=== PATIENT | female | born 1965 | race Caucasian/White ===

== ENCOUNTER 2023-06-14 11:50 | Outpatient (OUT) | payer MEDICARE, MEDICAID, SELFPAY ==
[2023-06-15 07:08] LABS: Homocyst(e)ine 19.6 umol/L (0.0-14.5)
[2023-06-17 00:08] LABS: Methylmalonic Acid, Serum 195 nmol/L (0-378)
[2023-06-18 00:06] LABS: Vitamin B6, Plasma 12.1 ug/L (3.4-65.2)
== END 2023-06-14 11:51 | disposition home or self-care (01) ==
LOC: LAB 11:56
PROVIDERS: PCP Internal Medicine; Visit Provider Internal Medicine
DX: G62.9 Polyneuropathy, unspecified (principal); G60.9 Hereditary and idiopathic neuropathy, unspecified; R79.89 Other specified abnormal findings of blood chemistry; Z11.3 Encounter for screening for infections with a predominantly sexual mode of transmission; E53.1 Pyridoxine deficiency; D51.3 Other dietary vitamin B12 deficiency anemia; I70.91 Generalized atherosclerosis; M79.10 Myalgia, unspecified site; E78.5 Hyperlipidemia, unspecified; G40.909 Epilepsy, unspecified, not intractable, without status epilepticus
CPT/HCPCS: 36415; 82607; 82746; 83090; 83921; 84207

== ENCOUNTER 2023-07-26 07:27 | Outpatient (OUT) | payer MEDICARE, MEDICAID, SELFPAY ==
[2023-07-26 08:31] LABS: Estimated GFR (African America >60 (>=60); Estimated GFR (Non-African Ame >60 (>=60)
[2023-07-27 05:07] LABS: Lithium (Eskalith(R)), Serum 0.7 mmol/L (0.5-1.2)
== END 2023-07-26 07:28 | disposition home or self-care (01) ==
LOC: LAB 07:29
PROVIDERS: PCP Internal Medicine
DX: Z79.899 Other long term (current) drug therapy (principal); F43.10 Post-traumatic stress disorder, unspecified; F31.32 Bipolar disorder, current episode depressed, moderate
CPT/HCPCS: 36415; 80178; 82565; 84520

== ENCOUNTER 2023-10-12 13:40 | Outpatient (OUT) | payer MEDICARE, MEDICAID, SELFPAY ==
--- NOTE | 2023-10-12 13:45 | MM_ITS ---
Patient Name: ALEXSANDER GUTIERREZ MR#: [id number] : 1965 Exam Date: 10/12/2023 Ordering Doctor: DR HUMBERTO ROBBINS M.D. RADIOLOGY REPORT PROCEDURE: MM TOMOSYNTHESIS SCREENING BI COMPARISON: MG MAMM SCREEN MARY W CAD, 06/13/2020. MG MAMM SCREEN 3D MARY CAD, 06/04/2022. INDICATIONS: Screening Calculator Name NCI Breast Cancer Risk Assessment Tool 5 Year Breast Cancer Risk 2.70% Lifetime Breast Cancer Risk 15.10% Personal Breast Cancer No Personal Ovarian Cancer No Treatments None Family Cancers Mother with breast cancer at age 71; Aunt-maternal with breast cancer at age ~60; Father with lung cancer at age 49. LOCATION: [facility] BREAST COMPOSITION: Scattered areas fibroglandular density. FINDINGS: DIAGNOSTIC CATEGORY 1--NEGATIVE. NO CHANGE FROM COMPARISON ASSESSMENT. Scattered benign-appearing calcifications are present. RIGHT BREAST: No significant suspicious finding. LEFT BREAST: No significant suspicious finding. RECOMMENDATIONS: ROUTINE MAMMOGRAM AND CLINICAL EVALUATION IN 12 MONTHS. PLEASE NOTE: A NORMAL MAMMOGRAM DOES NOT EXCLUDE THE POSSIBILITY OF BREAST CANCER. A CLINICALLY SUSPICIOUS PALPABLE LUMP SHOULD BE BIOPSIED. Dictated by: Adan Hopper MD on 10/13/2023 at 07:56 Approved by: Adan Hopper MD on 10/13/2023 at 07:57
== END 2023-10-12 13:41 | disposition home or self-care (01) ==
LOC: MAMMO 13:40
PROVIDERS: PCP Internal Medicine; Visit Provider Internal Medicine
DX: Z12.31 Encounter for screening mammogram for malignant neoplasm of breast (principal); Z80.3 Family history of malignant neoplasm of breast; Z80.1 Family history of malignant neoplasm of trachea, bronchus and lung
CPT/HCPCS: 77063; 77067

== ENCOUNTER 2024-12-29 13:18 | Outpatient (OUT) | payer MEDICARE, MEDICAID, SELFPAY ==
--- NOTE | 2024-12-29 13:22 | MM_ITS ---
Patient Name: ALEXSANDER GUTIERREZ MR#: [id number] : 1965 Exam Date: 12/29/2024 Ordering Doctor: DR HUMBERTO ROBBINS M.D. RADIOLOGY REPORT PROCEDURE: MM TOMOSYNTHESIS SCREENING BI COMPARISON: MG MAMM SCREEN 3D MARY CAD, 06/04/2022. MM TOMOSYNTHESIS SCREENING BI, 10/12/2023. INDICATIONS: Screening Calculator Name NCI Breast Cancer Risk Assessment Tool 5 Year Breast Cancer Risk 2.90% Lifetime Breast Cancer Risk 14.40% Personal Breast Cancer No Personal Ovarian Cancer No Treatments None Family Cancers Mother with breast cancer at age 71; Aunt-maternal with breast cancer at age ~60; Father with lung cancer at age 49. LOCATION: [facility] BREAST COMPOSITION: There are scattered areas of fibroglandular density. FINDINGS: DIAGNOSTIC CATEGORY 1--NEGATIVE. NO CHANGE FROM COMPARISON ASSESSMENT. RIGHT BREAST: No significant suspicious finding. LEFT BREAST: No significant suspicious finding. RECOMMENDATIONS: ROUTINE MAMMOGRAM AND CLINICAL EVALUATION IN 12 MONTHS. PLEASE NOTE: A NORMAL MAMMOGRAM DOES NOT EXCLUDE THE POSSIBILITY OF BREAST CANCER. A CLINICALLY SUSPICIOUS PALPABLE LUMP SHOULD BE BIOPSIED. Dictated by: Adan Hopper MD on 12/29/2024 at 15:06 Approved by: Adan Hopper MD on 12/29/2024 at 15:07
== END 2024-12-29 13:19 | disposition home or self-care (01) ==
LOC: MAMMO 13:18
PROVIDERS: PCP Internal Medicine; Visit Provider Internal Medicine
DX: Z12.31 Encounter for screening mammogram for malignant neoplasm of breast (principal); Z80.3 Family history of malignant neoplasm of breast; Z80.1 Family history of malignant neoplasm of trachea, bronchus and lung
CPT/HCPCS: 77063; 77067

== ENCOUNTER 2025-05-25 13:49 | Outpatient (OUT) | payer MEDICARE, MEDICAID, SELFPAY ==
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
--- OUTSIDE RECORDS SUMMARY | 2025-05-25 13:55 | XMS_ITS | Encounter Summary ---
Author Organization [facility] Address [address] [place] [address] Care Team Providers Care Loan Officer Name Role Phone Nj MURPHY MD, Jorge Soto Primary Care Provider [phone] Source Comments In the event this information is protected by the Federal Confidentiality of Alcohol and Drug AbusePatient Records regulations: The Federal rules restrict any use of the information to criminally investigate or prosecute any alcohol or drug abuse patient.[facility] Encounter Details Date Type Department Care Team (Late st Contact Info) Description 08/12/2024 [place] [address] Provider, [facility] Questionnaire Submission Social History Tobacco Use Types Packs/Day Years Used Date Smoking Tobacco: Never Smokeless Tobacco: Never Alcohol Use Standard Drinks/Week Comments Yes 0 (1 standard drink = 0.6 oz pure alcohol) occasioanlly, stopped drinking early PHQ-2 Answer Date Recorded PHQ-2 score 5 03/26/2024 Area Deprivation Index Answer Date Mario rded National Score (1-100), lower number is lower ri sk 73 08/14/2024 State Score (1-10), lower number is lower risk 6 08/14/2024 Data from: https://www.neighborhoodatlas.[facility]/. Last address used for calculation [address] [address] 08/14/2024 Comments No Sex and Gender Information Value Date Recorded Sex Assigned at Not on file Legal Sex Female 8:10 AM EST Gender Identity Not on file Sexual Orientation Not on file documented as of this encounter Plan of Treatment Not on file documented as of this encounter Visit Diagnoses Not on filedocumented in this encounter Care Teams Loan Officer Relationship Specialty Start Date End Date Jorge Mauro II, MD PCP - General 08/25/07 documented as of this encounter
--- OUTSIDE RECORDS SUMMARY | 2025-05-25 13:55 | XMS_ITS | Clinical Summary ---
Author Organization [facility] Address [address] [place] [address] Care Team Providers Care Natural Sciences Manager Name Role Phone Jorge Mauro MD Primary Care Provider Allergies Active Allergy Reactions Criticality Noted Date Comments Other 06/24/2013 Cough medicine Medications citalopram (CELEXA) 20 MG tablet Take 20 mg by mouth daily. Active montelukast (SINGULAIR) 10 MG tablet Take 10 mg by mouth daily. Active levothyroxine (SYNTHROID) 50 MCG tablet Take 50 mcg by mouth Daily. Active albuterol (PROVENTIL HFA) 108 (90 BASE) MCG/ACT inhaler Inhale 2 puffs into the lungs every 4 hours as needed. Active albuterol (PROVENTIL) (2.5 MG/3ML) 0.083% nebulizer solution Take 2.5 mg by nebulization every 6 hours as needed. Active enalapril (VASOTEC) 5 MG tablet Take 5 mg by mouth daily. Active fluticasone (FLONASE) 50 MCG/ACT nasal spray 2 sprays by Nasal route daily. Active fluticasone-aurora meterol (ADVAIR) 250-50 MCG/DOSE AEPB Inhale 1 puff into the lungs every 12 hours. Active vitamin (-S) 27-0.8 MG TABS Take 1 tablet by mouth daily. Active buPROPion (WELLBUTRIN SR) 150 MG SR tablet Take 150 mg by mouth 2 times daily. Active zolpidem (AMBIEN) 10 MG tablet Take 10 mg by mouth nightly as needed. Active HYDROcodone-fabiana taminophen (VICODIN) 5-500 MG per tablet Take 1 tablet by mouth every 6 hours as needed. Active acetaminophen (TYLENOL) 500 MG tablet Take 1,000 mg by mouth every 6 hours as needed. Active vitamin D (ERGOCALCIFEROL ) 400 UNITS CAPS Take 400 Units by mouth daily. Active tiZANidine (ZANAFLEX) 4 MG tablet Take 4 mg by mouth every 6 hours as needed. Active Biotin 1000 MCG TABS Take 1,000 mcg by mouth daily. Active guaiFENesin (MUCINEX) 600 MG SR tablet Take 600 mg by mouth daily. Active Social History Tobacco Use Types Packs/Day Years Used Date Smoking Tobacco: Former Comments No Sex and Gender Information Value Date Recorded Sex Assigned at Not on file Legal Sex Female 9:41 AM EST Gender Identity Not on file Sexual Orientation Not on file Last Filed Vital Signs Vital Sign Reading Time Taken Comments Blood Pressure 142/81 06/24/2013 5:52 PM EDT Pulse 65 06/24/2013 5:52 PM EDT Temperature 36.9 C (98.5 F) 06/24/2013 5:52 PM EDT Respiratory Rate 20 06/24/2013 5:52 PM EDT Oxygen Saturation 98% 06/24/2013 5:52 PM EDT Inhaled Oxygen Concentration - - Weight 84.4 kg (186 lb) 06/24/2013 5:52 PM EDT Height 165.1 cm (5' 5 ) 06/24/2013 5:52 PM EDT Body Mass Index 30.95 06/24/2013 5:52 PM EDT Plan of Treatment Not on file Care Teams Natural Sciences Manager Relationship Specialty Start Date End Date Jorge Mauro MD [address] [address] PCP - General 06/24/13
--- OUTSIDE RECORDS SUMMARY | 2025-05-25 13:55 | XMS_ITS | Clinical Summary ---
Author Organization [facility] Address [address] [place] [address] Care Team Providers Care Hunter Trapper Name Role Phone Nj MURPHY MD, Jorge Soto Primary Care Provider +1- [phone] Allergies Active Allergy Reactions Criticality Noted Date Comments Ikc-Muxdqptngwy-Uhidvzfpnhqtz Itching 2022 dextromethoraphan Dextromethorphan Rash Low 05/02/2013 Medications * This document contains information received from the source organization and may not represent a complete record from that organization. montelukast (SINGULAIR) 10 mg ORAL Tab Take by mouth. 0 7 Active fluticasone (FLONASE) 50 mcg/Actuation NASAL SprA Use in the nose. 0 7 Active enalapril maleate(VASOTEC 5 MG TAB) Take 5 mg by mouth once daily. 0 8 Active fluticasone/salm eterol(ADVAIR DISKUS 250 MCG-50 MCG/DOSE FOR INHALATION) Inhale as instructed. 0 8 Active Additional Information Patient not taking.Reason: Discontinued by Patient, Reported on 10/13/2024 ALBUTEROL 90 MCG/ACTUATION AEROSOL INHALER Inhale one(1) - two(2) puffs four(4) times a day as needed for wheezing and shortness of breath. 0 9 Active COMPOUNDED PRESCRIPTION 0 0 9 Active frovatriptan (FROVA) 2.5 mg ORAL tablet Take by mouth. Act surendra Additional Information Patient not taking.Reason: Discontinued by Patient, Reported on 05/01/2025 CYCLOSPORINE (RESTASIS OPHTHALMIC) Use in eyes. Activ e Omeprazole 20 mg TbEC Take by mouth. Activ e acetaminophen (TYLENOL EXTRA STRENGTH) 500 mg tablet Take 500 mg by mouth every 8 hours as needed. Active tiZANidine HCl 4 mg capsule Take 4 mg by mouth twice daily. Active alendronate (FOSAMAX) 70 mg tablet Take 70 mg by mouth once each week. Active docusate sodium (STOOL SOFTENER ORAL) Take by mouth. Activ e prazosin (MINIPRESS) 2 mg cap Take 2 mg by mouth once daily. Active lithium carbonate ER 300 mg CR tablet Take 300 mg by mouth two times a day. Active venlafaxine ER (EFFEXOR XR) 150 mg 24 hr capsule Take 150 mg by mouth once daily. 4 Active sertraline (ZOLOFT) 100 mg tablet Take 100 mg by mouth once daily. 4 Active senna-docusate (SENNA-S) 8.6-50 mg per tablet Take 1 tablet by mouth two times a day as needed for constipation. 20 tablet 08/25/2024 11:19 AM EDT 4 Active naloxone 4 mg/actuation nasal spray (NARCAN) Use 1 spray in one nostril as needed for overdose. May repeat every 2 to 3 min in alternating nostrils until medical assistance is available 1 Each 4 Active primidone (MYSOLINE) 50 mg tabletIndication s:Essential tremor Take 2 tablets twice daily (AM and PM) 120 tablet 3 5 Active Active Problems Problem Noted Date Diagnosed Date S/P deep brain stimulator placement 09/08/2024 Mild intermittent asthma without complication Assessment & Plan (08/21/2024 2:20 PM EDT): Stable on Breo daily and albuterol PRN Denies any recent SOB or wheezing ALYSIA (obstructive sleep apnea) 08/21/2024 Assessment & Plan (08/21/2024 11:42 PM EDT): Compliant with CPAP Type 2 diabetes mellitus, wi thout long-term current use of insulin 08/21/2024 Assessment & Plan (08/21/2024 11:43 PM EDT): Diet controlled No recent A1C Class 2 obesity with body ma ss index (BMI) of 35.0 to 35.9 in adult 08/21/2024 Assessment & Plan (08/21/2024 11:44 PM EDT): Body mass index is 35.11 kg/m . Acquired hypothyroidism 08/21/2024 Assessment & Plan (08/21/2024 11:44 PM EDT): Stable on Synthroid Gastroesophageal reflux disease without esophagi tis 08/21/2024 Assessment & Plan (08/21/2024 11:45 PM EDT): Symptoms controlled with PPI Essential tremor 08/14/2024 Other and unspecified hyperlipidemia 10/18/2007 Headache(784.0) 10/18/2007 Posttraumatic stress disorder 10/18/2007 Assessment & Plan (08/21/2024 11:41 PM EDT): Managed with medications Triggered by noises Unspecified essential hypertension Assessment & Plan (08/21/2024 2:12 PM EDT): Stable, complaint on ENALAPRIL MALEATE 5 MG TABLET Take by mouth. PRAZOSIN 2 MG CAPSULE Take 2 mg by mouth once daily. Follows with PCP. Last 3 Encounter BP Readings: Date: BP: 08/21/2024 113/98 08/21/2024 113/75 03/28/2024 126/87 Resolved Problems Problem Noted Date Diagnosed Date Resolved Date Morbid obesity 04/26/2008 08/21/2024 Unspecified asthma(493.90) 0 08/21/2024 Encounters Date Type Department Care Team Description 05/01/2025 12:00 PM EDT Office Visit [facility] [address] [place] [address] Delfino Reynaga, PAWendyC Essential tremor (Primary Dx); Abnormality of gait; Insomnia due to medical condition 05/01/2025 10:00 AM EDT - 05/01/2025 11:59 PM EDT Hospital Encounter Radiology [id number] [place] [id number] Discharge Disposition: Home 04/24/2025 Travel 03/19/2025 Travel from Last 3 Months Family History Medical History Relation Comments Hypertension Brother 2 Hypertension Mother Hypertension Sister 5 Anesthesia Problems No Family History Relation Status Comments Brother 1 Alive 47; 250# Brother 2 Father (Age 50) cancer Mother Alive 73; 180# Sister 1 Alive 52; 240# Sister 2 Alive 47; 250# Sister 3 Alive 44; 250# Sister 4 Alive 41; 190# Sister 5 Social History Tobacco Use Types Packs/Day Years Used Date Smoking Tobacco: Former Cigarettes 0.1 13 1 981 - 1993 Smokeless Tobacco: Never Tobacco Cessation:Counseling Given: Not Answered Alcohol Use Standard Drinks/Week Comments Yes 0 (1 standard drink = 0.6 oz pure alcohol) occasioanlly, stopped drinking early [facility] Utilities Answer Date Recorded In the past 12 months has th e [employer] gas, oil, or water [email or web address] threatened to shut off services in your home? No 08/25/2024 PHQ-2 Answer Date Recorded PHQ-2 score 2 04/24/2025 Hunger Vital Sign Answer Date Recorded Within the past 12 months, y ou worried that your food would run out before you got the money to buy more. Never true 08/25/20 24 Within the past 12 months, t he food you bought just didn't last and you didn't have money to get more. Never true 08/25/2024 PRAPARE - Transportation Answer Date Re corded In the past 12 months, has l ack of transportation kept you from medical appointments or from getting medications? No 07/31 In the past 12 months, has l ack of transportation kept you from meetings, work, or from getting things needed for daily living? No 08/25/2024 Housing Stability Vital Sign Answer Phillip e Recorded In the last 12 months, was t here a time when you were not able to pay the mortgage or rent on time? No 08/25/2024 Number of Times Moved in the Last Year Not on fi le 08/25/2024 At any time in the past 12 m [facility], were you homeless or living in a long term (including now)? No 08/25/2024 Area Deprivation Index Answer Date Mario rded National Score (1-100), lower number is lower ri sk 73 08/14/2024 State Score (1-10), lower number is lower risk 6 08/14/2024 Data from: https://www.neighborhoodatlas.medicine.[facility]/. Last address used for calculation [address] [address] 08/14/2024 Comments No Sex and Gender Information Value Date Recorded Sex Assigned at Not on file Legal Sex Female 8:10 AM EST Gender Identity Not on file Sexual Orientation Not on file Last Filed Vital Signs Vital Sign Reading Time Taken Comments Blood Pressure 113/67 05/01/2025 12:00 PM EDT Pulse 56 05/01/2025 12:00 PM EDT Temperature 36 C (96.8 F) 09/21/2024 4:10 PM EDT Respiratory Rate 16 09/21/2024 4:10 PM EDT Oxygen Saturation 97% 05/01/2025 12: 00 PM EDT Inhaled Oxygen Concentration - - Weight 89.8 kg (197 lb 15.6 oz) 025 12:00 PM EDT Height 165.1 cm (5' 5 ) 12/26/2024 1:51 PM EST Body Mass Index 32.94 12/26/2024 1:51 PM EST Plan of Treatment Health Maintenance Due Date Last Done Comments HbA1C 1969 Diabetic Foot Exam 1974 Dilated Retinal Exam 1974 Urine Albumin:Creatinine Ratio 1974 Annual PCP Team Chronic Dise ase Visit 1982 Depression Screening 1982 Cervical Cancer Screening 1985 CT Colonography 2009 Colonoscopy 2009 Fecal Occult Blood 2009 Sigmoidoscopy 2009 Shingrix Vaccine (1 of 2) 2014 Pneumococcal Vaccine: 50+ (3 of 3 - PCV20 or PCV21) 07/26/2020 07/26/2015, 06/03/2015, 01/28/2012 Mammogram Screening 06/04/2023 06/04/2022, 06/13/2020, 08/03/2018, Additional history exists Cologuard (FIT-DNA) 07/04/2023 07/04/2020 Colorectal Cancer Screening 07/04/2023 LDL Cholesterol 07/08/2024 07/08/2023, 09/0 02/2012, 10/18/2007 Covid-19 Vaccine (1 - 2023-2 5 season) 2024 Medicare Advantage Annual We llness Visit 11/29/2024 RSV Vaccine (1 - Risk 60-74 years 1-dose series) 2024 DTaP,Tdap,Td Vaccine (2 - Tdap) 10/14/2030 Hepatitis C Screening Completed 12/02/2007 HIV Screening Completed 12/03/2007 Influenza Vaccine Completed 10/02/2024, , 09/16/2021, Additional history exists Medical Devices Implanted Type Area Motocross Racer Device Identifier Shelf Expiration Date Model / Serial / Lot Filter- 4 Implanted:11/1993 (Quantity not on file) Filter Abdomen Description:Pt sts greenfiel d Kit Ld Dbs Infty 40cm Blk 1.5 - [id number] Implanted:Qty: 1 on 08/24/2024 at [facility] Implant Left: Head - Cranial [employer] 05/16/2026 [id number] / [id number] / Kit Ld Dbs Infty 40cm Blk 1.5 - [id number] Implanted:Qty: 1 on 09/08/2024 at [facility] Implant Right: Head - Cranial [employer] 05/16/2026 [id number] / [id number] / Accy Cvr Anh Hl - [id number] Implanted:Qty: 1 on 09/08/2024 at [facility] Implant Right: Head - Cranial [employer] 05/23/2026 [id number] / / [id number] [employer] Implantable Pulse Generator [id number] Implanted:Qty: 1 on 09/21/2024 at [facility] Implant [employer] 08/24/2026 [id number] / [id number] / Procedures Procedure Name Priority Date/Time Associated Diagnosis Comments CT BRAIN WO IVCON Routine 05/01/2025 11: 26 AM EDT LIPID PANEL, FASTING Routine 08/02/2012 12:53 PM EDT Morbid obesity Status post bariatric surgery HIV RAPID FOR [facility] 12/03/2007 8:30 AM EST OCCUPATIONAL HEALTH EXPOSURE PROFILE/PATIENT STAT 12/02/2007 5:00 PM EST from Last 3 Months or Most Recently Relevant to Health Maintenance Results * CT BRAIN WO IVCON (05/01/2025 11:26 AM EDT) Anatomical Region Laterality Modality Head Computed Tomogra phy 05/01/2025 11:2 6 AM EDT Impressions 05/01/2025 11:46 AM EDT IMPRESSION: Stable head CT with bilateral uncomplicated DBS placement. Bulk Fluids Handler: PSCB Transcribe Date/Time: May 01 2025 11:42A Dictated by : SHEREEN COURTNEY MD This examination was interpreted and the report reviewed and electronically signed by: SHEREEN COURTNEY MD on May 01 2025 11:43AM EST Narrative 05/01/2025 11:46 AM EDT * * *Final Report* * * DATE OF EXAM: May 01 2025 11:26AM [facility] 0504 - CT BRAIN WO IVCON / PROCEDURE REASON: Essential tremor * * * * Physician Interpretation * * * * COMPARISONS: 09/08/2024. HISTORY: Essential tremors. TECHNIQUE: Head CT without contrast. MQ: CTBWO_3 CT Dose-Length Product (DLP): 875 mGy*cm CT Dose Reduction Employed: No dose reduction techniques were required RESULT: HEAD CT: Acute abnormality: None. Again identified are bifrontal DBS placement with the tip in the subthalamic nuclei without any complication related to the lead placement with intact leads within the intracranial portion. Stable sulci, gyri, ventricles, CSF spaces, brain, bones & skull base with senescent volume loss, microvascular ischemia, accentuation of CSF spaces, ventricular dilation and atherosclerotic vascular calcification. No acute infarct/hemorrhage, mass, mass effect or collections. Procedure Note Provider, [facility] - 05/01/2025 * * *Final Report* * * DATE OF EXAM: May 01 2025 11:26AM [facility] 0504 - CT BRAIN WO IVCON / PROCEDURE REASON: Essential tremor * * * * Physician Interpretation * * * * COMPARISONS: 09/08/2024. HISTORY: Essential tremors. TECHNIQUE: Head CT without contrast. MQ: CTBWO_3 CT Dose-Length Product (DLP): 875 mGy*cm CT Dose Reduction Employed: No dose reduction techniques were required RESULT: HEAD CT: Acute abnormality: None. Again identified are bifrontal DBS placement with the tip in the subthalamic nuclei without any complication related to the lead placement with intact leads within the intracranial portion. Stable sulci, gyri, ventricles, CSF spaces, brain, bones & skull base with senescent volume loss, microvascular ischemia, accentuation of CSF spaces, ventricular dilation and atherosclerotic vascular calcification. No acute infarct/hemorrhage, mass, mass effect or collections. IMPRESSION IMPRESSION: Stable head CT with bilateral uncomplicated DBS placement. Bulk Fluids Handler: LAST Transcribe Date/Time: May 01 2025 11:42A Dictated by : SHEREEN COURTNEY MD This examination was interpreted and the report reviewed and electronically signed by: SHEREEN COURTNEY MD on May 01 2025 11:43AM EST Adebayo Smith PA-C CT-PAMA Final Re sult * LIPID PANEL BASIC (08/02/2012 12:53 PM EDT) Triglyceride 106 30 - 149 mg/dL [facility] Cholesterol, Total 162 100 - 199 mg/dL [facility] HDL Cholesterol 70 >55 mg/dL [facility] VLDL Cholesterol 21 6 - 40 mg/dL [facility] LDL Cholesterol, Calculated 71 60 - 129 mg/dL [facility] Fasting Time 12 hrs [facility] TC:HDL Ratio 2.31 1.00 - 5.00 [facility] LDL:HDL Ratio 1.01 0.50 - 3.55 [facility] Non HDL Cholesterol 92 90 - 159 mg/dL [facility] Blood specimen (specimen) BLOOD SPECIMEN / Unknown 08/02/2012 12:53 PM EDT 08/02/2012 12:58 PM EDT Raji Luna LABORATORY Final Result [facility] [address] [place] [address] * POST X SCREEN (12/03/2007 8:30 AM EST) HIV, Rapid ([facility]) NegativeNOTIFIED PIETRO 1124 12/03/07 LMO NEGAT [facility] 12/03/2007 8:30 AM EST Darshana Guan OPERATIONS GENERAL AGENT.MANAGEMENT ASSISTANT LABORATORY Final Result Performing Organization Address City/[facility]/ZIP Co de Phone Number [facility] [address] [place] [address] * HEP EXPOSURE/SOURCE (12/02/2007 5:00 PM EST) HBsAg Negative NEGAT [facility] HIV 1 & 2 Ab (EIA) Non Reactive NR [facility] Comment: If results are indeterminate or otherwise inconsistent with an individual's clinical presentation or risk profile for HIV infection a repeat specimen is requested. A repeat specimen is also recommended for any individual identified positive for the first time. Hep C Antibody IA Negative NEGAT [facility] Blood specimen (specimen) BLOOD SPECIMEN / Unknown 12/02/2007 5:00 PM EST Darshana Guan OPERATIONS GENERAL AGENT.MANAGEMENT ASSISTANT LABORATORY Final Result Performing Organization Address City/[facility] Co de Phone Number [facility] [address] [place] [address] from Last 3 Months or Most Recently Relevant to Health Maintenance Insurance [employer] [place] Advance Directives Documents on File Type Date Recorded Patient Hole Digger Operator Expl anation Advance Directive(s) 08/25/2024 12:17 PM Care Teams Hunter Trapper Relationship Specialty Start Date End Date Jorge Mauro II, MD PCP - General 08/25/07
--- OUTSIDE RECORDS SUMMARY | 2025-05-25 13:55 | XMS_ITS | Encounter Summary ---
Author Organization [facility] Address [address] [place] [address] Care Team Providers Care Foreign Exchange Position Clerk Name Role Phone Nj MURPHY MD, Jorge Soto Primary Care Provider +1- [phone] Source Comments In the event this information is protected by the Federal Confidentiality of Alcohol and Drug AbusePatient Records regulations: The Federal rules restrict any use of the information to criminally investigate or prosecute any alcohol or drug abuse patient.[facility] Encounter Details Date Type Department Care Team (Late st Contact Info) Description 07/03/2024 Patient Msg Neurology [address] [place] [address] Provider, [facility] Appointment cancellation. Social History Tobacco Use Types Packs/Day Years Used Date Smoking Tobacco: Never Smokeless Tobacco: Never Alcohol Use Standard Drinks/Week Comments Yes 0 (1 standard drink = 0.6 oz pure alcohol) occasioanlly, stopped drinking early PHQ-2 Answer Date Recorded PHQ-2 score 5 03/26/2024 Area Deprivation Index Answer Date Mario rded National Score (1-100), lower number is lower ri 73 07/28/2023 State Score (1-10), lower number is lower risk 6 07/28/2023 Data from: https://www.neigh borhoodatlas.[facility].edu/. Last address used for calculation [address] 07/28/2023 Comments No Sex and Gender Information Value Date Recorded Sex Assigned at Not on file Legal Sex Female 8:10 AM EST Gender Identity Not on file Sexual Orientation Not on file documented as of this encounter Plan of Treatment Not on file documented as of this encounter Visit Diagnoses Not on filedocumented in this encounter Care Teams Foreign Exchange Position Clerk Relationship Specialty Start Date End Date Jorge Mauro II, MD PCP - General 08/25/07 documented as of this encounter
--- OUTSIDE RECORDS SUMMARY | 2025-05-25 13:55 | XMS_ITS | Encounter Summary ---
Author Organization [facility] Address [address] [place] [address] Care Team Providers Care Travograph Operator Name Role Phone Nj MURPHY MD, Jorge Soto Primary Care Provider +1- [phone] Source Comments In the event this information is protected by the Federal Confidentiality of Alcohol and Drug AbusePatient Records regulations: The Federal rules restrict any use of the information to criminally investigate or prosecute any alcohol or drug abuse patient.[facility] Encounter Details Date Type Department Care Team (Late st Contact Info) Description 11/30/2007 Abstract HOSP PICC [address] [place] [address] Main, Nurse Picc Infd [address] [place] [address] Social History Tobacco Use Types Packs/Day Years Used Date Smoking Tobacco: Never Alcohol Use Standard Drinks/Week Comments Yes 0 (1 standard drink = 0.6 oz pure alcohol) occasioanlly, stopped drinking early 1990s Comments No Sex and Gender Information Value Date Recorded Sex Assigned at Not on file Legal Sex Female 8:10 AM EST Gender Identity Not on file Sexual Orientation Not on file documented as of this encounter Progress Notes * 11/30/2007 3:12 PM ESTMidline Pre-Procedure Checklist Date: November 30, 2007 Time: 1500 Weather Stripper: Yee Cano RN Weather Forecaster: Gloria Araiza RN Consent Obtained: Yes Allergies Verified: Yes Device Ordered: Midline Known history of venous thrombosis: No PPM or AICD: No Previous breast surgery or lymph node dissection: No Renal patient with AVF or AVF planned: No Time-out prior to procedure: Correct patient by 2 identifiers: yes Equipment Available: yes Hand Hygiene: Weather Forecaster and Weather Stripper Procedure surface cleaned with alcohol: yes Bonnet and Mask: Weather Forecaster and Weather Stripper Sterile gown and sterile gloves: Weather Stripper Site prep with Chlorhexidine Gluconate: yes Maximal sterile draping: yes Insertion Note Midline placement ordered by Dr. Luna. Midline insertion procedure and follow-up care required explained to:Patient. The insertion area was prepped and draped in a sterile fashion and a Midline with the following specifications inserted: SIDE: Left VEIN: Cephalic SIZE: 18 gauge/ 4 Bulgarian LENGTH: 20 centimeters BRAND: Everloop NUMBER OF LUMENS: Single MID UPPER ARM CIRCUMFERENCE: 46 centimeters PLACEMENT TECHNIQUE: Ultrasound guidance with [facility] LIDOCAINE 1% INJECTED SUBDERMALLY: Yes 1mL POST INSERTION PAIN LEVEL RELATED TO PROCEDURE: 0 ACTION TAKEN: None needed PICC LOT #: [id number] [facility] LOT #: [id number] A blood return was obtained from the catheter. The Midline was flushed with: 10 mls of normal saline and 2 mls of heparin flush solution (100 units/ml). The Midline was secured with: A securement device. Sterile dressing applied. QUESTIONS OR PROBLEMS: PAGE MIDLINE/PICC PAGER #[phone] Gloria Araiza Rn documented in this encounter Plan of Treatment Not on file documented as of this encounter Visit Diagnoses Not on filedocumented in this encounter Care Teams Travograph Operator Relationship Specialty Start Date End Date Jorge Mauro II, MD PCP - General 08/25/07 documented as of this encounter
--- OUTSIDE RECORDS SUMMARY | 2025-05-25 13:55 | XMS_ITS | Encounter Summary ---
Author Organization [facility] Address [address] [place] [address] Care Team Providers Care Para Professional Name Role Phone Nj MURPHY MD, Jorge Soto Primary Care Provider +1- [phone] Source Comments In the event this information is protected by the Federal Confidentiality of Alcohol and Drug AbusePatient Records regulations: The Federal rules restrict any use of the information to criminally investigate or prosecute any alcohol or drug abuse patient.[facility] Encounter Details Date Type Department Care Team (Late st Contact Info) Description 10/16/2024 Get Medical Advice Neurological [facility]into [address] [place] [place] [id number] Jay Queen MD [address] [place] [address] Thank you Social History Tobacco Use Types Packs/Day Years Used Date Smoking Tobacco: Former Cigarettes 0.1 13 1 981 - 1993 Smokeless Tobacco: Never Alcohol Use Standard Drinks/Week Comments Yes 0 (1 standard drink = 0.6 oz pure alcohol) occasioanlly, stopped drinking early [facility] Utilities Answer Date Recorded In the past 12 months has th e electric, gas, oil, or water company threatened to shut off services in your home? No 08/25/2024 PHQ-2 Answer Date Recorded PHQ-2 score 2 10/06/2024 Hunger Vital Sign Answer Date Recorded Within [...] any time in the past 12 m [facility], were you homeless or living in a longterm (including now)? No 08/25/2024 Area Deprivation Index Answer Date Mario rded National Score (1-100), lower number is lower ri sk 73 08/14/2024 State Score (1-10), lower number is lower risk 6 08/14/2024 Data from: https://www.neighborhoodatlas.medicine.[facility].edu/. Last address used for calculation [address] 08/14/2024 Comments No Sex and Gender Information Value Date Recorded Sex Assigned at Not on file Legal Sex Female 8:10 AM EST Gender Identity Not on file Sexual Orientation Not on file documented as of this encounter Plan of Treatment Not on file documented as of this encounter Visit Diagnoses Not on filedocumented in this encounter Care Teams Para Professional Relationship Specialty Start Date End Date Jorge Mauro II, MD PCP - General 08/25/07 documented as of this encounter
--- OUTSIDE RECORDS SUMMARY | 2025-05-25 13:56 | XMS_ITS | Encounter Summary ---
Author Organization [facility] Address [address] [facility] [place] [address] Care Team Providers Care Hand Cementer Name Role Phone Jorge Mauro MD Unavailable [phone] Jorge Mauro MD Primary Care Provider [phone] Jorge Mauro MD Unavailable [phone] Encounter Details Date Type Department Care Team (Late Contact Info) Description 09/01/2023 Abstract [facility] [address] [facility] 110 [place] [phone] Jorge Mauro MD 112 [facility] [address] [place], [place] [id number] Social History Tobacco Use Types Packs/Day Years Used Date Smoking Tobacco: Former Cigarettes Q uit: 1980 Smokeless Tobacco: Never Alcohol Use Standard Drinks/Week Comments Never 0 (1 standard drink = 0.6 oz pur e alcohol) PHQ-2 Answer Date Recorded Patient Health Questionnaire-2 Score 0 08/30/2023 Comments Unknown Sex and Gender Information Value Date Recorded Sex Assigned at Not on file Legal Sex Female 6:36 PM EDT Gender Identity Not on file Sexual Orientation Not on file documented as of this encounter Plan of Treatment Upcoming Encounters Date Type Department Care Team (Late Contact Info) Description 07/09/2025 1:45 PM EDT Office Visit [facility] [address] [facility] [address] [place] [address] Jorge Mauro MD 112 [facility] [address] [place], [place] [id number] documented as of this encounter Visit Diagnoses Not on filedocumented in this encounter Care Teams Hand Cementer Relationship Specialty Start Date End Date Jorge Mauro MD [address] [place] [address] PCP - ACO Reach 04/22/23 01/04/25 Jorge Mauro MD [address] [place] [address] PCP - General Internal Medicine 05/25/23 Jorge Mauro MD [address] [place] [address] PCP - ACO Reach 01/12/25 03/01/25 documented as of this encounter
--- OUTSIDE RECORDS SUMMARY | 2025-05-25 13:56 | XMS_ITS | Encounter Summary ---
Author Organization [facility] Address [address] [place] [address] Care Team Providers Care Prepared Foods Supervisor Name Role Phone Jorge Mauro MD Unavailable [phone] Jorge Mauro MD Primary Care Provider [phone] Jorge Mauro MD Unavailable [phone] Encounter Details Date Type Department Care Team (Late st Contact Info) Description 08/24/2024 Abstract [facility] [address] [facility] [address] [place] [address] Jorge Mauro MD 112 [facility] 110 [place] [address] Social History Tobacco Use Types Packs/Day Years Used Date Smoking Tobacco: Former Cigarettes Q uit: 1981 Smokeless Tobacco: Never Alcohol Use Standard Drinks/Week Comments Never 0 (1 standard drink = 0.6 oz pur e alcohol) B1300 Health Literacy Answer Date Recor ded [...] week 05/21/2024 How often do you attend jainism or moravian serv ices? Never 05/21/2024 Do you belong to any clubs o r organizations such as jainism groups, unions, fraternal or athletic groups, or [...] Recorded Patient Health Questionnaire-2 Score 0 08/30/2023 [facility] ional [facility] - Occupational Stress [...] any time in the past 12 m [facility], were you homeless or living in a fpc (including now)? No 05/21/2024 Comments Unknown Sex [...] Office Visit [facility] [address] [place] [address] Jorge Mauro MD [address] [place] [address] documented as of this encounter Visit Diagnoses Not on filedocumented in this encounter Care Teams Prepared Foods Supervisor Relationship Specialty Start Date End Date Jorge Mauro MD [address] [place] [address] PCP - ACO Reach 04/22/23 01/04/25 Jorge Mauro MD [address] [place] [address] PCP - General Internal Medicine 05/25/23 Jorge Mauro MD [address] [place] [address] PCP - ACO Reach 01/12/25 03/01/25 documented as of this encounter
--- OUTSIDE RECORDS SUMMARY | 2025-05-25 13:56 | XMS_ITS | Encounter Summary ---
Author Organization [facility] Address [address] [place] [address] Care Team Providers Care Arch Pad Cementer Name Role Phone Nj UMRPHY MD, Jorge Soto Primary Care Provider [phone] Source Comments In the event this information is protected by the Federal Confidentiality of Alcohol and Drug AbusePatient Records regulations: The Federal rules restrict any use of the information to criminally investigate or prosecute any alcohol or drug abuse patient.[facility] Encounter Details Date Type Department Care Team (Late st Contact Info) Description 08/18/2011 Abstract General Surgery [address] [place] [address] Raji Luna Social History Tobacco Use Types Packs/Day Years [...] on file documented as of this encounter Nursing Notes * 08/18/2011 12:00 PM EDT >> CHRIS SAUL Herbert Aug 18, 2011 11:03 AM Estela Bocanegra RN, has provided the historical comorbidity information for this abstract for theBariatric Outcomes Longitudinal Database (BOLD) as required for compliance with the [facility] program. documented in this encounter Plan of Treatment Not on file documented as of this encounter Visit Diagnoses Not on filedocumented in this encounter Care Teams Arch Pad Cementer Relationship Specialty Start Date End Date Jorge Mauro II, MD PCP - General 08/25/07 documented as of this encounter
--- OUTSIDE RECORDS SUMMARY | 2025-05-25 13:56 | XMS_ITS | Encounter Summary ---
Author Organization [facility] Address [address] [facility] [place] [address] Care Team Providers Care Collator Name Role Phone Jorge Mauro MD Primary Care Provider [phone] Encounter Details Date Type Department Care Team (Late st Contact Info) Description 04/10/2025 Abstract [facility] [address] [facility] [address] [place] [phone] Jorge Mauro MD [address] [facility] [address] [place], [place] [id number] Social History Tobacco Use Types Packs/Day Years Used Date Smoking Tobacco: Former Cigarettes 0.5 1.8 0 02/10/1979 - 1980 Smokeless Tobacco: Never Alcohol Use Standard Drinks/Week Comments Yes 2 [...] week 05/21/2024 How often do you attend baptist or bahai serv ices? Never 05/21/2024 Do you belong to any clubs o r organizations such as baptist groups, unions, fraternal or athletic groups, or [...] Date Recorded Patient Health Questionnaire-2 Score 0 04/09/2025 [facility] - Occupational Stress Questionnaire Answer Date Recorded [...] any time in the past 12 m [facility], were you homeless or living in a care home (including now)? No 05/21/2024 Comments Unknown Sex [...] Visit [facility] [address] [facility] [address] [place] [address] Jorge Mauro MD [address] [facility] 110 [place] [address] documented as of this encounter Visit Diagnoses Not on filedocumented in this encounter Care Teams Collator Relationship Specialty Start Date End Date Jorge Mauro MD [address] [facility] [address] [place] [address] PCP - General Internal Medicine 05/25/23 documented as of this encounter
--- OUTSIDE RECORDS SUMMARY | 2025-05-25 13:56 | XMS_ITS | Encounter Summary ---
Author Organization [facility] Address [address] [place] [address] Care Team Providers Care Prescriptionist Name Role Phone Jorge Mauro MD Primary Care Provider [phone] Reason for Visit * Reason Comments Med Refill Encounter Details Date Type Department Care Team (Late st Contact Info) Description 05/11/2025 Refill [facility] [address] [place] [phone] Yves Taylor MD [address] [place], [place] [id number] Essential tremor Social History Tobacco Use Types Packs/Day Years [...] week 05/21/2024 How often do you attend gnosticism or zoroastrianism serv ices? Never 05/21/2024 Do you belong to any clubs o r organizations such as gnosticism groups, unions, fraternal or athletic groups, or [...] Recorded Patient Health Questionnaire-2 Score 0 04/09/2025 [facility] of Occupat ional Health [...] any time in the past 12 m [facility], were you homeless or living in a prison (including now)? No 05/21/2024 Comments Unknown Sex [...] Office Visit [facility] [address] [facility] 110 [place] [address] Jorge Mauro MD [address] [facility] 110 [place] [address] documented as of this encounter Visit Diagnoses Diagnosis Essential tremor documented in this encounter Care Teams Prescriptionist Relationship Specialty Start Date End Date Jorge Mauro MD [address] [facility] [address] [place] [address] PCP - General Internal Medicine 05/25/23 documented as of this encounter
--- OUTSIDE RECORDS SUMMARY | 2025-05-25 13:56 | XMS_ITS | Encounter Summary ---
Author Organization [facility] Address [address] [place] [address] Care Team Providers Care Long Chain Beamer Name Role Phone Jorge Mauro MD Primary Care Provider [phone] Encounter Details Date Type Department Care Team (Latest Contact Info) Description 05/24/2025 Travel Social History Tobacco Use Types Packs/Day Years [...] week 05/21/2024 How often do you attend uatsdin or anabaptism serv ices? Never 05/21/2024 Do you belong to any clubs o r organizations such as uatsdin groups, unions, fraternal or athletic groups, or [...] Recorded Patient Health Questionnaire-2 Score 2 05/24/2025 [facility] Occupat ional Health - Occupational Stress [...] any time in the past 12 m [facility], were you homeless or living in a prison (including now)? No 05/21/2024 Comments Unknown Sex and Gender Information Value Date Recorded Sex Assigned at Not on file Legal Sex Female 6:36 PM EDT Gender Identity Not on file Sexual Orientation Not on file documented as of this encounter Functional Status * Over the [...] ROSHAN YOU documented as of this encounter Plan of Treatment Upcoming Encounters Date Type Department Care Team (Late st Contact Info) Description 07/09/2025 1:45 PM EDT Office Visit [facility] [address] [facility] [address] [place] [address] Jorge Mauro MD [address] [facility] 110 [place] [address] documented as of this encounter Visit Diagnoses Not on filedocumented in this encounter Care Teams Long Chain Beamer Relationship Specialty Start Date End Date Jorge Mauro MD [address] [facility] [address] [place] [address] PCP - General Internal Medicine 05/25/23 documented as of this encounter
--- OUTSIDE RECORDS SUMMARY | 2025-05-25 13:56 | XMS_ITS | Encounter Summary ---
Author Organization [facility] Address [address] [place] [address] Care Team Providers Care Furnace Fitter Name Role Phone Jorge Mauro MD Unavailable [phone] Jorge Mauro MD Primary Care Provider [phone] Jorge Mauro MD Unavailable [phone] Reason for Visit * Reason Comments Med Refill Encounter Details Date Type Department Care Team (Late st Contact Info) Description 12/26/2023 Refill [facility] [address] [place] [phone] Jorge Mauro MD [address] [facility] [address] [place], [place] [id number] Osteoarthritis of lumbar spine with myelopathy Social History Tobacco Use Types Packs/Day Years [...] on file documented as of this encounter Miscellaneous Notes * Telephone Encounter - Steffany Altamirano - 12/27/2023 3:45 PM EST PT SCHEDULED * Telephone Encounter - JENNIFER Velasco - 12/27/2023 1:10 PM EST Patient's last office visit was 08/30/2023. She is almost a month over due for controlled medicationfollow up. Please help her get set up for an appt and let her know this will be her last refill until she is seen. I sent in a two week supply. documented in this encounter Plan of Treatment Upcoming Encounters Date Type Department Care Team (Late st Contact Info) Description 07/09/2025 1:45 PM EDT Office Visit [facility] [address] [place] [address] Jorge Mauro MD [address] [place] [address] documented as of this encounter Visit Diagnoses Diagnosis Osteoarthritis of lumbar spine with myelopathy documented in this encounter Care Teams Furnace Fitter Relationship Specialty Start Date End Date Jorge Mauro MD [address] [place] [address] PCP - ACO Reach 04/22/23 01/04/25 Jorge Mauro MD [address] [place] [address] PCP - General Internal Medicine 05/25/23 Jorge Mauro MD [address] [place] [address] PCP - ACO Reach 01/12/25 03/01/25 documented as of this encounter
--- OUTSIDE RECORDS SUMMARY | 2025-05-25 13:56 | XMS_ITS | Encounter Summary ---
Author Organization [facility] Address [address] [place] [address] Care Team Providers Care Transition Of Care Specialist Name Role Phone Jorge Mauro MD Unavailable [phone] Jorge Mauro MD Primary Care Provider [phone] Jorge Mauro MD Unavailable [phone] Encounter Details Date Type Department Care Team (Late st Contact Info) Description 08/21/2024 Clinisync Result Encounter [facility] External Department Unsolicited Provider, Generic External Data Social History Tobacco Use Types Packs/Day Years [...] week 05/21/2024 How often do you attend methodist or latter-day serv ices? Never 05/21/2024 Do you belong to any clubs o r organizations such as methodist groups, unions, fraternal or athletic groups, or [...] Recorded Patient Health Questionnaire-2 Score 0 08/30/2023 [facility] of Occupat ional Health - Occupational [...] any time in the past 12 m [facility], were you homeless or living in a half-way (including now)? No 05/21/2024 Comments Unknown Sex and Gender Information Value Date Recorded Sex Assigned at Not on file Legal Sex Female 6:36 PM EDT Gender Identity Not on file Sexual Orientation Not on file documented as of this encounter Plan of Treatment Upcoming Encounters Date Type Department Care Team (Late st Contact Info) Description 07/09/2025 1:45 PM EDT Office Visit [facility] [address] [facility] 110 [place] [address] Jorge Mauro MD 112 [facility] 110 [place] [address] documented as of this encounter Procedures Procedure Name Priority Date/Time Associated Diagnosis Comments CT BRAIN WO IVCON 08/21/2024 10: 57 AM EDT documented in this encounter Results * CT BRAIN WO IVCON (08/21/2024 10:57 AM EDT) Anatomical Region Laterality Modality Other 08/21/2024 10:5 7 AM EDT Narrative 08/21/2024 3:50 PM EDT * * *Final Report* * * DATE OF EXAM: Aug 21 2024 10:57AM [facility] 0504 - CT BRAIN WO IVCON / PROCEDURE REASON: Parkinson's disease without dyskinesia or fluctuating manifestations (HCC) * * * * Physician Interpretation * * * * CT BRAIN WO IVCON HISTORY: Parkinson's disease without dyskinesia or fluctuating manifestations (HCC). Parkinson's disease, preop evaluation for deep brain stimulator. TECHNIQUE: Serial axial images without IV contrast were obtained from the vertex to the foramen magnum. MQ: CTBWO_3 CT Radiation dose: Integrated Dose-Length Product (DLP) for this visit = 845 mGy*cm CT Dose Reduction Employed: Not listed COMPARISON: CT brain 03/28/2024 RESULT: Localizer images: No significant findings. Post-operative change: None. Acute change: No evidence of an acute infarct or other acute parenchymal process. Hemorrhage: No evidence of acute intracranial hemorrhage. ECASS hemorrhagic transformation score: Not Applicable Mass Lesion / Mass Effect: There is no evidence of an intracranial mass or extraaxial fluid collection. No significant mass effect. Chronic change: Extensive confluent foci of low attenuation are present in the supratentorial white matter which is nonspecific but likely represents extensive microvascular ischemic change for age. Parenchyma: There is no significant volume loss. The brain parenchyma is otherwise within normal limits for age. Ventricles: The ventricles are within normal limits of size and configuration for age. Paranasal sinuses and skull base: Bilateral wall thickening of the maxillary sinuses suggesting chronic osteitis with mucosal thickening greater on the right, and superimposed fluid levels increased compared with prior, suggesting acute on chronic sinusitis. Scattered ethmoid sinus mucosal thickening. Nasal bone deformity and/or reconstruction, stable from prior. The skull base and imaged soft tissues are unremarkable. IMPRESSION: Localization exam for treatment planning purposes. No acute intracranial findings. Acute on chronic maxillary sinusitis. Copy Chaser: LAST Transcribe Date/Time: Aug 21 2024 11:29A Dictated by : SHARI RODRIGUEZ MD This examination was interpreted and the report reviewed and electronically signed by: APARNA ALMARAZ MD on Aug 21 2024 3:48PM EST [id number]^ACN Procedure Note Radiology, Radiologist, - 08/21/2024 * * *Final Report* * * DATE OF EXAM: Aug 21 2024 10:57AM [facility] 0504 - CT BRAIN WO IVCON / PROCEDURE REASON: Parkinson's disease without dyskinesia or fluctuating manifestations (HCC) * * * * Physician Interpretation * * * * CT BRAIN WO IVCON HISTORY: Parkinson's disease without dyskinesia or fluctuating manifestations (HCC). Parkinson's disease, preop evaluation for deep brain stimulator. TECHNIQUE: Serial axial images without IV contrast were obtained from the vertex to the foramen magnum. MQ: CTBWO_3 CT Radiation dose: Integrated Dose-Length Product (DLP) for this visit = 845 mGy*cm CT Dose Reduction Employed: Not listed COMPARISON: CT brain 03/28/2024 RESULT: Localizer images: No significant findings. Post-operative change: None. Acute change: No evidence of an acute infarct or other acute parenchymal process. Hemorrhage: No evidence of acute intracranial hemorrhage. ECASS hemorrhagic transformation score: Not Applicable Mass Lesion / Mass Effect: There is no evidence of an intracranial mass or extraaxial fluid collection. No significant mass effect. Chronic change: Extensive confluent foci of low attenuation are present in the supratentorial white matter which is nonspecific but likely represents extensive microvascular ischemic change for age. Parenchyma: There is no significant volume loss. The brain parenchyma is otherwise within normal limits for age. Ventricles: The ventricles are within normal limits of size and configuration for age. Paranasal sinuses and skull base: Bilateral wall thickening of the maxillary sinuses suggesting chronic osteitis with mucosal thickening greater on the right, and superimposed fluid levels increased compared with prior, suggesting acute on chronic sinusitis. Scattered ethmoid sinus mucosal thickening. Nasal bone deformity and/or reconstruction, stable from prior. The skull base and imaged soft tissues are unremarkable. IMPRESSION: Localization exam for treatment planning purposes. No acute intracranial findings. Acute on chronic maxillary sinusitis. Copy Chaser: LAST Transcribe Date/Time: Aug 21 2024 11:29A Dictated by : SHARI RODRIGUEZ MD This examination was interpreted and the report reviewed and electronically signed by: APARNA ALMARAZ MD on Aug 21 2024 3:48PM EST [id number]^ACN Generic External Data Provider [facility] Final Result documented in this encounter Visit Diagnoses Not on filedocumented in this encounter Care Teams Transition Of Care Specialist Relationship Specialty Start Date End Date Jorge Mauro MD [address] [place] [address] PCP - ACO Reach 04/22/23 01/04/25 Jorge Mauro MD [address] [facility] [address] [place] [address] PCP - General Internal Medicine 05/25/23 Jorge Mauro MD [address] [facility] [address] [place] [address] PCP - ACO Reach 01/12/25 03/01/25 documented as of this encounter
--- OUTSIDE RECORDS SUMMARY | 2025-05-25 13:56 | XMS_ITS | Encounter Summary ---
Author Organization [facility] Address [address] [place] [address] Care Team Providers Care Svp Monetization Name Role Phone Jorge Mauro MD Unavailable [phone] Jorge Mauro MD Primary Care Provider [phone] Jorge Mauro MD Unavailable [phone] Encounter Details Date Type Department Care Team (Late st Contact Info) Description 04/07/2024 Clinisync Result Encounter [facility] External Department Unsolicited [...] CI FM [address] [place] [id number] Jorge Mauro MD [address] [place], [place] [id number] documented as of this encounter Procedures Procedure Name Priority Date/Time Associated Diagnosis Comments MRI BRAIN WO/W IVCON 04/07/2024 10:18 AM EDT documented in this encounter Results * MRI BRAIN WO/W IVCON (04/07/2024 10:18 AM EDT) Anatomical Region Laterality Modality Other 04/07/2024 10:1 8 AM EDT Narrative 04/07/2024 11:00 AM EDT * * *Final Report* * * DATE OF EXAM: Apr 07 2024 10:18AM [facility] 0295 - MRI BRAIN WO/W IVCON / PROCEDURE REASON: Essential tremor * * * * Physician Interpretation * * * * EXAMINATION: MRI BRAIN WO/W IVCON CLINICAL HISTORY: Essential tremor TECHNIQUE: Routine brain MRI protocol without and with contrast including diffusion images. MQ: MRBWOW_2 Contrast: 20 mL Dotarem IV COMPARISON: MR brain 11/10/2021 RESULT: Acute Change: There is no evidence of restricted diffusion to suggest an acute infarct. Hemorrhage: No evidence of prior parenchymal hemorrhage on the gradient echo images. Mass Lesion/ Mass Effect: No evidence of an intracranial mass or extra-axial fluid collection. No abnormal parenchymal or leptomeningeal enhancement is noted following contrast administration. No significant mass effect. Chronic Change: Extensive, confluent increased T2 and FLAIR signal is present in the supratentorial white matter which is nonspecific but likely represents extensive chronic microvascular ischemia. Parenchyma: No significant volume loss for age. The brain parenchyma is otherwise within normal limits of signal intensity and morphology. Ventricles: Normal caliber and morphology. Skull Base: Hypothalamic and pituitary region are grossly normal. Craniocervical junction is normal. No significant marrow replacement process. Vasculature: Major intracranial arterial structures, and dural venous sinuses show typical flow void, suggesting patency by spin echo criteria. Other: Minimal mucosal thickening in the bilateral ethmoid air cells and maxillary sinuses, with hypoplastic right maxillary sinus noted. The orbits and extracranial soft tissues are unremarkable. IMPRESSION: No change since the prior exam from 2020 with severe amount of T2/FLAIR hyperintensity in the white matter which is nonspecific but may be due to severe chronic microvascular change. No acute intracranial process. No abnormal intracranial enhancement. Mohs Surgeon/General Dermatologist: LAST Transcribe Date/Time: Apr 07 2024 10:54A Dictated by : MARIO LEMON MD This examination was interpreted and the report reviewed and electronically signed by: MARIO LEMON MD on Apr 07 2024 10:58AM EST [id number]^ACN Procedure Note Radiology, Radiologist, - 04/07/2024 * * *Final Report* * * DATE OF EXAM: Apr 07 2024 10:18AM [facility] 0295 - MRI BRAIN WO/W IVCON / PROCEDURE REASON: Essential tremor * * * * Physician Interpretation * * * * EXAMINATION: MRI BRAIN WO/W IVCON CLINICAL HISTORY: Essential tremor TECHNIQUE: Routine brain MRI protocol without and with contrast including diffusion images. MQ: MRBWOW_2 Contrast: 20 mL Dotarem IV COMPARISON: MR brain 11/10/2021 RESULT: Acute Change: There is no evidence of restricted diffusion to suggest an acute infarct. Hemorrhage: No evidence of prior parenchymal hemorrhage on the gradient echo images. Mass Lesion/ Mass Effect: No evidence of an intracranial mass or extra-axial fluid collection. No abnormal parenchymal or leptomeningeal enhancement is noted following contrast administration. No significant mass effect. Chronic Change: Extensive, confluent increased T2 and FLAIR signal is present in the supratentorial white matter which is nonspecific but likely represents extensive chronic microvascular ischemia. Parenchyma: No significant volume loss for age. The brain parenchyma is otherwise within normal limits of signal intensity and morphology. Ventricles: Normal caliber and morphology. Skull Base: Hypothalamic and pituitary region are grossly normal. Craniocervical junction is normal. No significant marrow replacement process. Vasculature: Major intracranial arterial structures, and dural venous sinuses show typical flow void, suggesting patency by spin echocriteria. Other: Minimal mucosal thickening in the bilateral ethmoid air cells and maxillary sinuses, with hypoplastic right maxillary sinus noted. The orbits and extracranial soft tissues are unremarkable. IMPRESSION: No change since the prior exam from 2020 with severe amount of T2/FLAIR hyperintensity in the white matter which is nonspecific but may be due to severe chronic microvascular change. No acute intracranial process. No abnormal intracranial enhancement. Mohs Surgeon/General Dermatologist: LAST Transcribe Date/Time: Apr 07 2024 10:54A Dictated by : MARIO LEMON MD This examination was interpreted and the report reviewed and electronically signed by: MARIO LEMON MD on Apr 07 2024 10:58AM EST [id number]^ACN us Generic External Data Provider [facility] Final Result documented in this encounter Visit Diagnoses Not on filedocumented in this encounter Care Teams Svp Monetization Relationship Specialty Start Date End Date Jorge Mauro MD [address] [facility] [address] [place] [address] PCP - ACO Reach 04/22/23 01/04/25 Jorge Mauro MD [address] [facility] [address] [place] [address] PCP - General Internal Medicine 05/25/23 Jorge Mauro MD [address] [facility] [address] [place] [address] PCP - ACO Reach 01/12/25 03/01/25 documented as of this encounter
--- OUTSIDE RECORDS SUMMARY | 2025-05-25 13:56 | XMS_ITS | Encounter Summary ---
Author Organization [facility] Address [address] [facility] [place] [address] Care Team Providers Care Oyster Fisherman Name Role Phone Jorge Mauro MD Unavailable [phone] Jorge Mauro MD Primary Care Provider [phone] Jorge Mauro MD Unavailable [phone] Encounter Details Date Type Department Care Team (Late Contact Info) Description 06/17/2023 Orders Only [facility] 112 [facility] 110 [place] [address] A, Unknown Practice [address] [place], [place] [id number] Social History Tobacco Use Types Packs/Day Years Used Date Smoking Tobacco: Former Cigarettes Q uit: 1980 Smokeless Tobacco: Never Alcohol Use Standard Drinks/Week Comments Never 0 (1 standard drink = 0.6 oz pur e alcohol) PHQ-2 Answer Date Recorded Patient Health Questionnaire-2 Score 0 06/16/2023 Comments Unknown Sex and Gender Information Value Date Recorded Sex Assigned at Not on file Legal Sex Female 6:36 PM EDT Gender Identity Not on file Sexual Orientation Not on file documented as of this encounter Plan of Treatment Upcoming Encounters Date Type Department Care Team (Late Contact Info) Description 07/09/2025 1:45 PM EDT Office Visit [facility] 112 [facility] 110 [place] [address] Jorge Mauro MD 112 [facility] 110 [place] [address] documented as of this encounter Procedures Procedure Name Priority Date/Time Associated Diagnosis Comments SCANNED LABS Routine 06/14/2023 9:36 AM EDT documented in this encounter Results * SCANNED LABS (06/14/2023 9:36 AM EDT) us Unknown Practice A LAB CHG PERFORMABLES Final Re sult documented in this encounter Visit Diagnoses Not on filedocumented in this encounter Care Teams Oyster Fisherman Relationship Specialty Start Date End Date Jorge Mauro MD [address] [facility] 110 [place] [address] PCP - ACO Reach 04/22/23 01/04/25 Jorge Mauro MD [address] [facility] 110 [place] [address] PCP - General Internal Medicine 05/25/23 Jorge Mauro MD [address] [facility] 110 [place] [address] PCP - ACO Reach 01/12/25 03/01/25 documented as of this encounter
--- OUTSIDE RECORDS SUMMARY | 2025-05-25 13:56 | XMS_ITS | Encounter Summary ---
Author Organization [facility] Address [address] [place] [address] Care Team Providers Care Transfer Operator Name Role Phone Jorge Mauro MD Unavailable [phone] Jorge Mauro MD Primary Care Provider [phone] Jorge Mauro MD Unavailable [phone] Encounter Details Date Type Department Care Team (Late st Contact Info) Description 06/15/2023 Orders Only [facility] [address] [place] [address] A, Unknown Practice [address] [place], [place] [id number] Social History Tobacco Use Types Packs/Day Years [...] Little interest or pleasure in doing things Not at all 06/16/2023 2:32 PM EDT Milli Salomon MA Feeling down, depressed, or hopeless Not at all 06/16/2023 2:32 PM EDT Milli Salomon MA Patient Health Questionnaire -2 Score 0 06/16/2023 2:32 PM EDT Milli Salomon MA documented as of this encounter Plan of Treatment Upcoming Encounters Date Type Department Care Team (Late st Contact Info) Description 07/09/2025 1:45 PM EDT Office Visit [facility] [address] [place] [address] Jorge Mauro MD [address] [facility] 110 [place] [address] documented as of this encounter Procedures Procedure Name Priority Date/Time Associated Diagnosis Comments SCANNED LABS Routine 06/14/2023 1:09 PM EDT SCANNED LABS Routine 06/14/2023 11:06 AM EDT documented in this encounter Results * SCANNED LABS (06/14/2023 1:09 PM EDT) us Unknown Practice A LAB CHG PERFORMABLES Final Re sult * SCANNED LABS (06/14/2023 11:06 AM EDT) us Unknown Practice A LAB CHG PERFORMABLES Final Re sult documented in this encounter Visit Diagnoses Not on filedocumented in this encounter Care Teams Transfer Operator Relationship Specialty Start Date End Date Jorge Mauro MD [address] [facility] 110 [place] [address] PCP - ACO Reach 04/22/23 01/04/25 Jorge Mauro MD [address] [place] [address] PCP - General Internal Medicine 05/25/23 Jorge Mauro MD [address] [place] [address] PCP - ACO Reach 01/12/25 03/01/25 documented as of this encounter
--- OUTSIDE RECORDS SUMMARY | 2025-05-25 13:56 | XMS_ITS | Encounter Summary ---
Author Organization [facility] Address [address] [facility] [place] [address] Care Team Providers Care Seat Trimmer Name Role Phone Jorge Mauro MD Primary Care Provider [phone] Reason for Visit * Reason Comments Med Refill Encounter Details Date Type Department Care Team (Late st Contact Info) Description 05/15/2025 Refill [facility] FM [address] [facility] 110 [place] [address] Jorge Mauro MD [address] [facility] 110 [place], [place] [id number] Osteoarthritis of lumbar spine with myelopathy Social [...] week 05/21/2024 How often do you attend rastafari or baptist serv ices? Never 05/21/2024 Do you belong to any clubs o r organizations such as rastafari groups, unions, fraternal or athletic groups, or [...] Recorded Patient Health Questionnaire-2 Score 0 04/09/2025 [facility] - Occupational [...] any time in the past 12 m [facility], were you homeless or living in a senior care (including now)? No 05/21/2024 Comments Unknown Sex [...] Office Visit [facility] CI FM [address] [facility] 110 [place] [address] Jorge Mauro MD [address] [facility] 110 [place] [address] documented as of this encounter Visit Diagnoses Diagnosis Osteoarthritis of lumbar spine with myelopathy documented in this encounter Care Teams Seat Trimmer Relationship Specialty Start Date End Date Jorge Mauro MD [address] [facility] 110 [place] [address] PCP - General Internal Medicine 05/25/23 documented as of this encounter
--- OUTSIDE RECORDS SUMMARY | 2025-05-25 13:56 | XMS_ITS | Encounter Summary ---
Author Organization [facility] Address [address] [facility] [place] [address] Care Team Providers Care Bridge Worker Apprentice Name Role Phone Jorge Mauro MD Unavailable [phone] Jorge Mauro MD Primary Care Provider [phone] Jorge Mauro MD Unavailable [phone] Encounter Details Date Type Department Care Team (Late Contact Info) Description 07/29/2023 Abstract [facility] CI FM [address] [facility] 110 [place] [address] Jorge Mauro MD 112 [facility] 110 [place], [place] [id number] Social History Tobacco Use Types Packs/Day Years Used Date Smoking Tobacco: Former Cigarettes Q uit: 1980 Smokeless Tobacco: Never Alcohol Use Standard Drinks/Week Comments Never 0 (1 standard drink = 0.6 oz pur e alcohol) PHQ-2 Answer Date Recorded Patient Health Questionnaire-2 Score 0 06/28/2023 Comments Unknown Sex and Gender Information Value Date Recorded Sex Assigned at Not on file Legal Sex Female 6:36 PM EDT Gender Identity Not on file Sexual Orientation Not on file documented as of this encounter Plan of Treatment Upcoming Encounters Date Type Department Care Team (Late Contact Info) Description 07/09/2025 1:45 PM EDT Office Visit [facility] 112 [facility] 110 [place] [address] Jorge Mauro MD 112 [facility] 110 [place], [place] [address] documented as of this encounter Visit Diagnoses Not on filedocumented in this encounter Care Teams Bridge Worker Apprentice Relationship Specialty Start Date End Date Jorge Mauro MD [address] [place] [address] PCP - ACO Reach 04/22/23 01/04/25 Jorge Mauro MD [address] [place] [address] PCP - General Internal Medicine 05/25/23 Jorge Mauro MD [address] [place] [address] PCP - ACO Reach 01/12/25 03/01/25 documented as of this encounter
--- OUTSIDE RECORDS SUMMARY | 2025-05-25 13:56 | XMS_ITS | Encounter Summary ---
Author Organization [facility] Address [address] [facility] [place] [address] Care Team Providers Care Cv Rn Name Role Phone Jorge Mauro MD Unavailable [phone] Jorge Mauro MD Primary Care Provider [phone] Jorge Mauro MD Unavailable [phone] Encounter Details Date Type Department Care Team (Late Contact Info) Description 04/19/2024 Abstract [facility] FM 112 [facility] 110 [place] [address] Jorge Mauro MD 112 [facility] 110 [place], [place] [address] Social History Tobacco Use Types Packs/Day Years [...] EDT Office Visit [facility] CI FM 112 [facility] 110 [place] [phone] Jorge Mauro MD 112 [facility] 110 [place], [place] [id number] documented as of this encounter Visit Diagnoses Not on filedocumented in this encounter Care Teams Cv Rn Relationship Specialty Start Date End Date Jorge Mauro MD [address] [place] [address] PCP - ACO Reach 04/22/23 01/04/25 Jorge Mauro MD [address] [place] [address] PCP - General Internal Medicine 05/25/23 Jorge Mauro MD [address] [place] [address] PCP - ACO Reach 01/12/25 03/01/25 documented as of this encounter
--- OUTSIDE RECORDS SUMMARY | 2025-05-25 13:56 | XMS_ITS | Encounter Summary ---
Author Organization [facility] Address [address] [place] [address] Care Team Providers Care Clutch Assembler Name Role Phone Jorge Mauro MD Unavailable [phone] Jorge Mauro MD Primary Care Provider [phone] Jorge Mauro MD Unavailable [phone] Encounter Details Date Type Department Care Team (Late Contact Info) Description 08/18/2023 Clinisync Result Encounter [facility] External Department Unsolicited [...] CI FM [address] [place] [phone] Jorge Mauro MD [address] [place], [place] [address] documented as of this encounter Procedures Procedure Name Priority Date/Time Associated Diagnosis Comments NM BRAIN TREMOR SPECT/CT 08/18/2023 2:43 PM EDT documented in this encounter Results * NM BRAIN TREMOR SPECT/CT (08/18/2023 2:43 PM EDT) Anatomical Region Laterality Modality Other 08/18/2023 2:43 PM EDT Narrative 08/18/2023 4:15 PM EDT * * *Final Report* * * DATE OF EXAM: Aug 18 2023 2:43PM [facility] 0088 - NM BRAIN TREMOR SPECT/CT / PROCEDURE REASON: Essential tremor * * * * Physician Interpretation * * * * I-123-BRAIN DaTSCAN CLINICAL HISTORY: Tremor. Parkinsonism. TECHNIQUE: The patient's medications and allergies were reviewed in electronic medical record and reconciled to the proposed procedure/treatment. The patient was pretreated with 4 drops of SSKI orally, followed by injection of 5 mCi I-123 Ioflupane, IV. SPECT CT images of the brain was acquired in 3-[address] Radiation dose: Integrated Dose-length product (DLP) for this visit = 368 mGy*cm. CT Dose Reduction Employed: Automatic exposure control used (AED) RESULT: Topogram review: Unremarkable, no acute findings. No retained foreign body. The tracer uptake in the caudate head and anterior striatum are asymmetric. The uptake in the left caudate head and anterior striatum: normal. The uptake in the right caudate head and anterior striatum: normal. The tracer uptake in the putamen and posterior striatum are asymmetric. The uptake in the left putamen and posterior striatum : Mild left and moderate. The uptake in the right putamen and posterior striatum: normal. CT of head and brain: the images were acquired mainly for attenuation correction, suboptimal for diagnosis purpose. No gross acute abnormal findings. IMPRESSION: THE PATTERN OF THE TRACER UPTAKE SUGGEST GRADE 2 LOSS OF DOPAMINERGIC NEURONAL TERMINAL DENSITY IN THE STRIATUM (SEE REFERENCE BELOW). REFERENCE: Ron Powell, MRCP ([place]), Juan Varghese, PhD, Esteban Douglas BSc, MD, FRCP Accurate Differentiation of Parkinsonism and Essential Tremor Using Visual Assessment of [123I]-FP-CIT SPECT Imaging: The [123I]-FP-CIT Study Group. Movement Disorders Vol. 15, No. 3, 1999, pp. 503-510 Director Of Outreach: LAST Transcribe Date/Time: Aug 18 2023 4:10P Dictated by : BALDO BURR MD This examination was interpreted and the report reviewed and electronically signed by: BALDO BURR MD on Aug 18 2023 4:13PM EST [id number]^ACN Procedure Note Radiology, Radiologist, - 08/19/2023 * * *Final Report* * * DATE OF EXAM: Aug 18 2023 2:43PM [facility] 0088 - NM BRAIN TREMOR SPECT/CT / PROCEDURE REASON: Essential tremor * * * * Physician Interpretation * * * * I-123-BRAIN DaTSCAN CLINICAL HISTORY: Tremor. Parkinsonism. TECHNIQUE: The patient's medications and allergies were reviewed in electronic medical record and reconciled to the proposed procedure/treatment. The patient was pretreated with 4 drops of SSKI orally, followed by injection of 5 mCi I-123 Ioflupane, IV. SPECT CT images of the brain was acquired in 3-[address] Radiation dose: Integrated Dose-length product (DLP) for this visit = 368 mGy*cm. CT Dose Reduction Employed: Automatic exposure control used (AED) RESULT: Topogram review: Unremarkable, no acute findings. No retained foreign body. The tracer uptake in the caudate head and anterior striatum are asymmetric. The uptake in the left caudate head and anterior striatum: normal. The uptake in the right caudate head and anterior striatum: normal. The tracer uptake in the putamen and posterior striatum are asymmetric. The uptake in the left putamen and posterior striatum : Mild left and moderate. The uptake in the right putamen and posterior striatum:normal. CT of head and brain: the images were acquired mainly for attenuation correction, suboptimal for diagnosis purpose. No gross acute abnormal findings. IMPRESSION: THE PATTERN OF THE TRACER UPTAKE SUGGEST GRADE 2 LOSS OF DOPAMINERGIC NEURONAL TERMINAL DENSITY IN THE STRIATUM (SEE REFERENCE BELOW). REFERENCE: Ron Powell, MRCP ([place]), Juan Varghese, PhD, Esteban Douglas, BSc, MD, FRCP Accurate Differentiation of Parkinsonism and Essential Tremor Using Visual Assessment of [123I]-FP-CIT SPECT Imaging: The [123I]-FP-CIT Study Group. Movement Disorders Vol. 15, No. 3, 1999, pp. 503-510 Director Of Outreach: LAST Transcribe Date/Time: Aug 18 2023 4:10P Dictated by : BALDO BURR MD This examination was interpreted and the report reviewed and electronically signed by: BALDO BURR MD on Aug 18 2023 4:13PM EST [id number]^ACN us Generic External Data Provider [facility] Final Result documented in this encounter Visit Diagnoses Not on filedocumented in this encounter Care Teams Clutch Assembler Relationship Specialty Start Date End Date Jorge Mauro MD [address] [facility] 110 [place] [address] PCP - ACO Reach 04/22/23 01/04/25 Jorge Mauro MD [address] [facility] 110 [place] [address] PCP - General Internal Medicine 05/25/23 Jorge Mauro MD [address] [facility] 110 [place] [address] PCP - ACO Reach 01/12/25 03/01/25 documented as of this encounter
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
--- OUTSIDE RECORDS SUMMARY | 2025-05-25 13:56 | XMS_ITS | Encounter Summary ---
Author Organization [facility] Address [address] [place] [address] Care Team Providers Care Sports Media Name Role Phone Jorge Mauro MD Unavailable [phone] Jorge Mauro MD Primary Care Provider Jorge Mauro MD Unavailable [phone] Encounter Details Date Type Department Care [...] week 05/21/2024 How often do you attend shinto or pentecostal serv ices? Never 05/21/2024 Do you belong to any clubs o r organizations such as shinto groups, unions, fraternal or athletic groups, or [...] Recorded Patient Health Questionnaire-2 Score 0 08/30/2023 [facility] - [...] any time in the past 12 m [facility], were you homeless or living in a usp (including now)? No 05/21/2024 Comments Unknown Sex [...] EDT Office Visit [facility] [address] [facility] [address] [place] [address] Jorge Mauro MD 112 [facility] [address] [place] [address] documented as of this encounter Procedures Procedure Name Priority Date/Time Associated Diagnosis Comments ECG 12-LEAD 08/21/2024 11:26 AM EDT documented in this encounter Results * ECG 12 lead (08/21/2024 11:26 AM EDT) 08/21/2024 11:2 6 AM EDT Narrative [facility] - 09/04/2024 3:11 PM EDT Ventricular Rate : 68 BPM Atrial Rate : 68 BPM P-R Interval : 170 ms QRS Duration : 150 ms Q-T Interval : 424 ms QTC Calculation(Bazett) : 450 ms Calculated P [place] : 46 degrees Calculated R [place] : 23 degrees Calculated T [place] : 34 degrees NORMAL SINUS RHYTHM COMPLETE RIGHT BUNDLE BRANCH BLOCK ABNORMAL ECG Confirmed by MD RUSLAN, PhD, NEMESIO ([id number]) on 09/04/2024 3:11:47 PM NAME : NIURKA GUTIERREZ PID : [id number] : 1965 Gender : Female Race : ORD : [id number] Procedure Date : Aug 21 2024 11:26:52 Edit Date : Sep 04 2024 15:11:49 Diagnosis: NORMAL SINUS RHYTHM COMPLETE RIGHT BUNDLE BRANCH BLOCK ABNORMAL ECG Confirmed by MD RUSLAN, PhD, NEMESIO ([id number]) on 09/04/2024 3:11:47 PM Test Reason : PT HAS TREMORS Location : 119 : A17 A17 Overread By : MD RUSLAN, PhD,NEMESIO Edited By : MD RUSLAN, PhD,NEMESIO Referred By : MARILOU CARBAJAL Acquired by : HUGH BROWNE Procedure Note Radiology, Radiologist, MD - 09/04/2024 Ventricular Rate : 68 BPM Atrial Rate : 68 BPM P-R Interval : 170 ms QRS Duration : 150 ms Q-T Interval : 424 ms QTC Calculation(Bazett) : 450 ms Calculated P [place] : 46 degrees Calculated R [place] : 23 degrees Calculated T [place] : 34 degrees NORMAL SINUS RHYTHM COMPLETE RIGHT BUNDLE BRANCH BLOCK ABNORMAL ECG Confirmed by MD RUSLAN, PhD, NEMESIO ([id number]) on 09/04/2024 3:11:47 PM NAME : NIURKA GUTIERREZ PID : [id number] : 1965 Gender : Female Race : ORD : [id number] Procedure Date : Aug 21 2024 11:26:52 Edit Date : Sep 04 2024 15:11:49 Diagnosis: NORMAL SINUS RHYTHM COMPLETE RIGHT BUNDLE BRANCH BLOCK ABNORMAL ECG Confirmed by MD RUSLAN, PhD, NEMESIO ([id number]) on 09/04/2024 3:11:47 PM Test Reason : PT HAS TREMORS Location : 119 : A17 A17 Overread By : MD RUSLAN, PhD,NEMESIO Edited By : MD RUSLAN, PhD,NEMESIO Referred By : MARILOU CARBAJAL Acquired by : HUGH BROWNE Generic External Data Provider ECG ORDERABLES F inal Result Performing Organization Address City/State/[facility] Co de Phone Number [facility] documented in this encounter Visit Diagnoses Not on filedocumented in this encounter Care Teams Sports Media Relationship Specialty Start Date End Date Jorge Mauro MD [address] [facility] [address] [place] [address] PCP - ACO Reach 04/22/23 01/04/25 Jorge Mauro MD [address] [facility] [address] [place] [address] PCP - General Internal Medicine 05/25/23 Jorge Mauro MD [address] [address] PCP - ACO Reach 01/12/25 03/01/25 documented as of this encounter
--- OUTSIDE RECORDS SUMMARY | 2025-05-25 13:56 | XMS_ITS | Encounter Summary ---
Author Organization [facility] Address [address] [place] [address] Care Team Providers Care Software Deployment Engineer Name Role Phone Jorge Mauro MD Unavailable [phone] Jorge Mauro MD Primary Care Provider [phone] Jorge Mauro MD Unavailable [phone] Encounter Details Date Type Department Care [...] week 05/21/2024 How often do you attend worship or rastafarian serv ices? Never 05/21/2024 Do you belong to any clubs o r organizations such as worship groups, unions, fraternal or athletic groups, or [...] Recorded Patient Health Questionnaire-2 Score 0 08/30/2023 [facility] - Occupational [...] any time in the past 12 m [facility], were you homeless or living in a chcf (including now)? No 05/21/2024 Comments Unknown Sex [...] EDT Office Visit [facility] [address] [facility] [address] [place] [address] Jorge Mauro MD 112 [facility] [address] [place] [address] documented as of this encounter Procedures Procedure Name Priority Date/Time Associated Diagnosis Comments MRI BRAIN LOCAL WO/W IVCON 08/21/2024 4:38 PM EDT [facility] TYPE AND SCREEN,30 DAY Routine 08/21/2024 12:04 PM EDT [facility] BAS METAB 2000 PNL SERPL Routine 08/21/2024 12:04 PM EDT documented in this encounter Results * MRI BRAIN LOCAL WO/W IVCON (08/21/2024 4:38 PM EDT) Anatomical Region Laterality Modality Other 08/21/2024 4:38 PM EDT Narrative 08/21/2024 4:55 PM EDT * * *Final Report* * * DATE OF EXAM: Aug 21 2024 4:38PM QBM 0291 - MRI BRAIN LOCAL WO/W IVCON / PROCEDURE REASON: Parkinson's disease without dyskinesia or fluctuating manifestations (HCC) * * * * Physician Interpretation * * * * MRI of the brain without and with contrast. HISTORY: Parkinson's disease. TECHNIQUE: DBS localization protocol without and with contrast. MR Contrast: Dotarem Contrast Dose: 20 cc Route of Administration: IV COMPARISON: 04/07/2024 RESULT: No acute abnormality and diffusion-weighted imaging. Brain parenchymal volume is maintained. Moderately advanced somewhat confluent chronic microvascular ischemic changes throughout the periventricular white matter. No evidence of a mass, mass effect, or extra-axial fluid collection. No abnormal parenchymal or meningeal enhancement. IMPRESSION: MODERATELY ADVANCED CHRONIC MICROVASCULAR ISCHEMIC CHANGE NOT SIGNIFICANTLY DIFFERENT FROM 04/07/2024. NO ACUTE ABNORMALITY. Wind Turbine Mechanical Engineer: LAST Transcribe Date/Time: Aug 21 2024 4:18P Dictated by : JORGE TOM MD This examination was interpreted and the report reviewed and electronically signed by: JORGE TOM MD on Aug 21 2024 4:53PM EST [id number] Procedure Note Radiology, Radiologist, - 08/21/2024 * * *Final Report* * * DATE OF EXAM: Aug 21 2024 4:38PM Q 0291 - MRI BRAIN LOCAL WO/W IVCON / PROCEDURE REASON: Parkinson's disease without dyskinesia or fluctuating manifestations (HCC) * * * * Physician Interpretation * * * * MRI of the brain without and with contrast. HISTORY: Parkinson's disease. TECHNIQUE: DBS localization protocol without and with contrast. MR Contrast: Dotarem Contrast Dose: 20 cc Route of Administration: IV COMPARISON: 04/07/2024 RESULT: No acute abnormality and diffusion-weighted imaging. Brain parenchymal volume is maintained. Moderately advanced somewhat confluent chronic microvascular ischemic changes throughout the periventricular white matter. No evidence of a mass, mass effect, or extra-axial fluid collection. No abnormal parenchymal or meningeal enhancement. IMPRESSION: MODERATELY ADVANCED CHRONIC MICROVASCULAR ISCHEMIC CHANGE NOT SIGNIFICANTLY DIFFERENT FROM 04/07/2024. NO ACUTE ABNORMALITY. Wind Turbine Mechanical Engineer: LAST Transcribe Date/Time: Aug 21 2024 4:18P Dictated by : JORGE TOM MD This examination was interpreted and the report reviewed and electronically signed by: JORGE TOM MD on Aug 21 2024 4:53PM EST [id number]^ACN us Generic External Data Provider [facility] Final Result * [facility] BAS METAB 2000 PNL SERPL (08/21/2024 12:04 PM EDT) [facility] GLUCOSE SERPL-[facility] 85 74 - 99 mg/dL [facility] Comment: The [place] Diabetes Association (ADA) provides guidance for cutoff values for fasting glucose and random glucose. The ADA defines fasting as no caloric intake for at least 8 hours. Fasting plasma glucose results between 100 to 125 mg/dL indicate increased risk for diabetes (prediabetes). Fasting plasma glucose results greater than or equal to 126 mg/dL meet the criteria for diagnosis of diabetes. In the absence of unequivocal hyperglycemia, results should be confirmed by repeat testing. In a patient with classic symptoms of hyperglycemia or hyperglycemic crisis, random plasma glucose results greater than or equal to 200 mg/dL meet the criteria for diagnosis of diabetes. Reference: Standards of Medical Care in Diabetes 2016, [place] Diabetes Association. Diabetes Care. 2016.39(Suppl 1). [facility] BUN SERPL-[facility] 15 7 - 21 mg/dL [facility] CREAT SERPL-[facility] 0.95 0.58 - 0.96 mg/dL [facility] SODIUM SERPL-SCNC 136 136 - 144 mmol/L [facility] POTASSIUM SERPL-SCNC 4.4 3.7 - 5.1 mmol/L [facility] CHLORIDE SERPL-SCNC 99 98 - 107 mmol/L [facility] CO2 SERPL-SCNC 26 22 - 30 mmol/L [facility] ANION GAP SERPL-SCNC 11 8 - 15 mmol/L [facility] CALCIUM SERPL-MCNC 9.5 8.5 - 10.2 mg/dL [facility] CREATININE + EGFR PNL SERPLBLD 69 >=60 mL/min/1.7 3m??? [facility] Comment:Estimated Glomerular Filtration Rate (eGFR) is calculated using the 2020 CKD-EPI creatinine equation. This equation utilizes serum creatinine, sex, and age as parameters. The creatinine assay has traceable calibration to isotope dilution- mass spectrometry. Refer to KDIGO guidelines for clinical interpretation. In patients with unstable renal function, e.g. those with acute kidney injury, the eGFR may not accurately reflect actual GFR. 08/21/2024 12:0 4 PM EDT 08/21/2024 2:43 PM EDT Narrative [facility] - 08/21/2024 8:55 PM EDT Specimen Type: BLOOD SPECIMEN Ordering Facility: [facility] Address: [address] [place] [address] Original Ordering Provider: MARILOU CARBAJAL Generic External Data Provider [facility] F inal Result Performing Organization Address [facility] Co de Phone Number [facility] [address] [facility] [place] [id number] * [facility] TYPE AND SCREEN,30 DAY (08/21/2024 12:04 PM EDT) ABO O [facility] RH Negative [facility] ANTIBODY SCREEN Negative [facility] HISTORICAL AB SCR STATUS NEGATIVE [facility] 08/21/2024 12:0 4 PM EDT 08/21/2024 1:38 PM EDT Narrative [facility]EN[facility] - 08/21/2024 8:11 PM EDT Specimen Type: BLOOD SPECIMEN Ordering Facility: [facility] Address: [address] [place] [address] CC MAIN BLOOD BANK CLIA [id number] [address] [place] [address] STATES OF [facility] Generic External Data Provider JIM[facility] E dited Result - Final Performing Organization Address [facility] Co de Phone Number [facility] [address] [place] [phone] documented in this encounter Visit Diagnoses Not on filedocumented in this encounter Care Teams Software Deployment Engineer Relationship Specialty Start Date End Date Jorge Mauro MD [address] [facility] [address] [place] [address] PCP - ACO Reach 04/22/23 01/04/25 Jorge Mauro MD [address] [facility] [address] [place] [address] PCP - General Internal Medicine 05/25/23 Jorge Mauro MD [address] [facility] [address] [place] [address] PCP - ACO Reach 01/12/25 03/01/25 documented as of this encounter
--- OUTSIDE RECORDS SUMMARY | 2025-05-25 13:56 | XMS_ITS | Encounter Summary ---
Author Organization [facility] Address [address] [place] [address] Care Team Providers Care Gathering Machine Setter Name Role Phone Nj MURPHY MD, Jorge Soto Primary Care Provider [phone] Source Comments In the event this information is protected by the Federal Confidentiality of Alcohol and Drug AbusePatient Records regulations: The Federal rules restrict any use of the information to criminally investigate or prosecute any alcohol or drug abuse patient.[facility] Encounter Details Date Type Department Care Team (Late st Contact Info) Description 08/02/2012 Surgical Case Followup General Surgery [address] [place], [place] [id number] Raji Luna Social History Tobacco Use Types [...] on filedocumented in this encounter Care Teams Gathering Machine Setter Relationship Specialty Start Date End Date Jorge Mauro II, MD PCP - General 08/25/07 documented as of this encounter
--- OUTSIDE RECORDS SUMMARY | 2025-05-25 13:56 | XMS_ITS | Clinical Summary ---
Author Organization [facility] Address [id number] [address] [place] [address] Care Team Providers Care Clothing Trades Workers Name Role Phone Jorge Mauro MD Primary Care Provider [phone] Allergies Active Allergy Reactions Criticality Noted Date Comments Dextroamphetamine Rash Low 07/14/2017 Medications zolpidem (AMBIEN) 10 mg tablet Take 10 mg by mouth nightly as needed for sleep. Active cholecalciferol , vitamin D3, 400 units tablet Take 400 Units by mouth daily. Active ascorbic acid, vitamin C, (ascorbic acid with riaz hips) 500 mg tablet Take 500 mg by mouth daily. Active cyanocobalamin (vitamin B-12) 250 MCG tablet Take 250 mcg by mouth daily. Active montelukast (SINGULAIR) 10 mg tablet Take 10 mg by mouth nightly. Active cycloSPORINE (RESTASIS) 0.05 % ophthalmic emulsion 1 drop 2 (two) times a day. Active albuterol (PROVENTIL HFA;VENTOLIN HFA) 90 mcg/actuation inhaler Inhale 2 puffs every 6 (six) hours as needed for wheezing. Active omeprazole (PriLOSEC) 40 mg capsule Take 40 mg by mouth daily. Active levothyroxine (SYNTHROID, LEVOTHROID) 50 MCG tablet Take 50 mcg by mouth daily. Active HYDROcodone-fabiana taminophen (NORCO) 5-325 mg per tablet Take 1 tablet by mouth every 6 (six) hours as needed for pain. Active fluticasone (FLONASE) 50 mcg/actuation nasal spray Administer 1 spray into each nostril daily. Active omega-3 fatty acids-fish oil (FISH OIL) 300-1,000 mg capsule Take 2 g by mouth daily. Active enalapril (VASOTEC) 5 mg tablet Take 5 mg by mouth daily. Active citalopram (CeleXA) 20 mg tablet Take 20 mg by mouth daily. Active nsielktf-vnpp-p in-folic acid (multivitamin-i pwb-gfocspul-ef lic acid) 3,500-18-0.4 unit-mg-mg tablet,chewable Chew and swallow daily. Active busPIRone (BUSPAR) 15 mg tablet Take 15 mg by mouth 2 (two) times a day. Active aspirin 81 mg Take 81 mg by mouth daily. Active acetaminophen (TYLENOL) 500 mg tablet Take by mouth. Activ e biotin 1 mg tablet Take by mouth. Activ e buPROPion SR (WELLBUTRIN SR) 150 mg 12 hr tablet Take by mouth. Activ e guaiFENesin (MUCINEX) 600 mg tablet extended release 12hr Take by mouth. Ac tive tiZANidine (ZANAFLEX) 4 mg tablet Take by mouth. Activ e albuterol (PROVENTIL,VENT MARIE) 2.5 mg /3 mL (0.083 %) nebulizer solution Active alendronate (FOSAMAX) 70 mg tablet Take 70 mg by mouth once a week. 5 7 Active celecoxib (CeleBREX) 200 mg capsule Take 200 mg by mouth once daily. 2 7 Active sertraline (ZOLOFT) 50 mg tablet Take 50 mg by mouth once daily. 10 7 Active Active Problems Problem Noted Date Diagnosed Date Physical examination of employee 07/14/2017 Family History Medical History Relation Name Comments Brain cancer Father Lung cancer Father Breast cancer Mother Relation Name Status Comments Father Mother Social History Tobacco Use Types Packs/Day Years Used Date Smoking Tobacco: Former Smokeless Tobacco: Never Alcohol Use Standard Drinks/Week Comments Yes 0 (1 standard drink = 0.6 oz pur e alcohol) RARELY Childcare Answer Date Recorded Childcare Unknown 05/10/2019 Employment Answer Date Recorded Employment Unknown 05/10/2019 Comments No Sex and Gender Information Value Date Recorded Sex Assigned at Not on file Legal Sex Female 11:36 AM EDT Gender Identity Not on file Sexual Orientation Not on file Last Filed Vital Signs Vital Sign Reading Time Taken Comments Blood Pressure 126/84 07/14/2017 1:11 PM EDT Pulse 72 07/14/2017 1:11 PM EDT Temperature - - Respiratory Rate 16 07/14/2017 1:11 PM EDT Oxygen Saturation 97% 07/14/2017 1:11 PM EDT Inhaled Oxygen Concentration - - Weight 82.7 kg (182 lb 6.4 oz) 07/14/2017 1:11 P M EDT Height 165.1 cm (5' 5 ) 07/14/2017 1:11 PM EDT Body Mass Index 30.35 07/14/2017 1:11 PM EDT Plan of Treatment Health Maintenance Due Date Last Done Comments Depression Screening 1976 Tobacco Screening 1976 Adult BMI Screening 1982 Zoster (Shingles) Vaccine (1 of 2) 2014 Influenza Vaccine 07/30/2025 10/15/2020, , 08/24/2017, Additional history exists DTaP,Tdap and Td Vaccines (2 - Tdap) 10/14/2030 10/14/2020 Medical Devices Not on file Insurance [place] Care Teams Clothing Trades Workers Relationship Specialty Start Date End Date Jorge Mauro MD [address] [facility] [address] [place] [id number] PCP - General Internal Medicine 11/06/21
--- OUTSIDE RECORDS SUMMARY | 2025-05-25 13:56 | XMS_ITS | Encounter Summary ---
Author Organization [facility] Address [address] [place] [address] Care Team Providers Care Shoe Worker Name Role Phone Jorge Mauro MD Unavailable [phone] Jorge Mauro MD Primary Care Provider [phone] Jorge Mauro MD Unavailable [phone] Encounter Details Date Type Department Care Team (Late st Contact Info) Description 08/18/2023 Telephone [facility] [address] [place] [address] Yves Taylor MD [address] [place], [place] [id number] Social History Tobacco Use Types Packs/Day Years [...] encounter Miscellaneous Notes * Telephone Encounter - Daniela Mcqueen - 08/18/2023 3:44 PM EDT Per 08/16/23 office visit: Assessment and Plan - B12 deficiency (Continue B12 SL.) Check on / reorder B12 panel & B6. Spoke with [facility] who informed me patient had these labs completed 06/14/23 (originally ordered at 06/10/23 office visit) Due to us currently not being able to receive faxes I took the lab results verbally over the phone. B12 - 399.0 Folate - 5.20 Homocystine - 19.6 Methylmonic Acid - 195 B6 - 12.1 documented in this encounter Plan of Treatment Upcoming Encounters Date Type Department Care Team (Late st Contact Info) Description 07/09/2025 1:45 PM EDT Office Visit [facility] [address] [place] [address] Jorge Mauro MD [address] [place] [address] documented as of this encounter Visit Diagnoses Not on filedocumented in this encounter Care Teams Shoe Worker Relationship Specialty Start Date End Date Jorge Mauro MD [address] [place] [address] PCP - ACO Reach 04/22/23 01/04/25 Jorge Mauro MD [address] [place] [address] PCP - General Internal Medicine 05/25/23 Jorge Mauro MD [address] [place] [address] PCP - ACO Reach 01/12/25 03/01/25 documented as of this encounter
--- OUTSIDE RECORDS SUMMARY | 2025-05-25 13:56 | XMS_ITS | Encounter Summary ---
Author Organization [facility] Address [address] [facility] [place] [address] Care Team Providers Care Director Radio Name Role Phone Jorge Mauro MD Primary Care Provider [phone] Reason for Visit * Reason Comments Med Refill Encounter Details Date Type Department Care Team (Late st Contact Info) Description 05/14/2025 Refill [facility] [address] [facility] 110 [place] [address] Jorge Mauro MD [address] [facility] 110 [place] [address] Gastroesophageal reflux disease, unspecified whether esophagitis present Social History Tobacco Use Types Packs/Day Years [...] How often do you attend gnosticism or mandaen serv ices? Never 05/21/2024 Do you belong [...] Recorded Patient Health Questionnaire-2 Score 0 04/09/2025 [facility] - Occupational Stress Questionnaire Answer Date Recorded [...] any time in the past 12 m [facility], were you homeless or living in [...] Office Visit [facility] [address] [facility] 110 [place] [address] Jorge Mauro MD 112 [facility] 110 [place] [address] documented as of this encounter Visit Diagnoses Diagnosis Gastroesophageal reflux disease, unspecified whether esophagitis present documented in this encounter Care Teams Director Radio Relationship Specialty Start Date End Date Jorge Mauro MD [address] [facility] 110 [place] [address] PCP - General Internal Medicine 05/25/23 documented as of this encounter
--- OUTSIDE RECORDS SUMMARY | 2025-05-25 13:56 | XMS_ITS | Encounter Summary ---
Author Organization [facility] Address [address] [facility] [place] [address] Care Team Providers Care Immigration Services Officer Name Role Phone Jorge Mauro MD Unavailable [phone] Jorge Mauro MD Primary Care Provider [phone] Jorge Mauro MD Unavailable [phone] Encounter Details Date Type Department Care Team (Late st Contact Info) Description 10/13/2023 Clinisync Result Encounter [facility] External Department Unsolicited Jorge Mauro MD 112 [facility] 110 [place], [place] [id number] Social History Tobacco Use Types Packs/Day Years [...] EDT Office Visit [facility] 112 [facility] 110 [place] [phone] Jorge Mauro MD 112 [facility] 110 [place], [place] [address] documented as of this encounter Procedures Procedure Name Priority Date/Time Associated Diagnosis Comments MM TOMOSYNTHESIS SCREENING BI 10/13/2023 7:57 AM EST documented in this encounter Results * MM TOMOSYNTHESIS SCREENING BI (10/13/2023 7:57 AM EST) Anatomical Region Laterality Modality Other 10/13/2023 7:57 AM EST Narrative 10/13/2023 7:57 [place] [address] Mammography Report Signed Patient: NIURKA JOHNSON I MR#: [id number] : 1965 Acct:[id number] Age/Sex: 57 / F ADM Date: 10/12/23 Loc: MAMMO Attending Dr: JORGE MAURO Ordering Physician: JORGE MAURO Results: Date of Service: 10/12/23 Follow Up: Procedure(s): MM tomosynthesis screening BI Accession Number(s): [id number] cc: JORGE MAURO Patient Name: NIURKA JOHNSON MR#: [id number] : 1965 Exam Date: 10/12/2023 Ordering Doctor: DR JORGE MAURO M.D. RADIOLOGY REPORT PROCEDURE: MM TOMOSYNTHESIS SCREENING BI COMPARISON: MG MAMM SCREEN MARY W CAD, 06/13/2020. MG MAMM SCREEN 3D MARY CAD, 06/04/2022. INDICATIONS: Screening Calculator Name NCI Breast Cancer Risk Assessment Tool 5 Year Breast Cancer Risk 2.70% Lifetime Breast Cancer Risk 15.10% Personal Breast Cancer No Personal Ovarian Cancer No Treatments None Family Cancers Mother with breast cancer at age 71; Aunt-maternal with breast cancer at age 60; Father with lung cancer at age 49. LOCATION: [facility] [place] BREAST COMPOSITION: Scattered areas fibroglandular density. FINDINGS: DIAGNOSTIC CATEGORY 1--NEGATIVE. NO CHANGE FROM COMPARISON ASSESSMENT. Scattered benign-appearing calcifications are present. RIGHT BREAST: No significant suspicious finding. LEFT BREAST: No significant suspicious finding. RECOMMENDATIONS: ROUTINE MAMMOGRAM AND CLINICAL EVALUATION IN 12 MONTHS. PLEASE NOTE: A NORMAL MAMMOGRAM DOES NOT EXCLUDE THE POSSIBILITY OF BREAST CANCER. A CLINICALLY SUSPICIOUS PALPABLE LUMP SHOULD BE BIOPSIED. Dictated by: Adan Hopper MD on 10/13/2023 at 07:56 Approved by: Adan Hopper MD on 10/13/2023 at 07:57 Dictated By: Adan Hopper M.D. Signed By: 10/13/23 0758 DD/ 075 TD/TT: Wheel Filler: Procedure Note Radiology, Radiologist, - 10/13/2023 [place] [address] Mammography Report Signed Patient: NIURKA JOHNSON IMR#: [id number] : 1965Acct:[id number] Age/Sex: 57 / FADM Date: 10/12/23 Loc: MAMMO Attending Dr: JORGE MAURO Ordering Physician: JORGE MAUROResults: Date of Service: 10/12/23Follow Up: Procedure(s): MM tomosynthesis screening BI Accession Number(s): [id number] cc: JORGE MAURO Patient Name: NIURKA JOHNSON MR#: [id number] : 1965 Exam Date: 10/12/2023 Ordering Doctor: DR JORGE MAURO M.D. RADIOLOGY REPORT PROCEDURE: MM TOMOSYNTHESIS SCREENING BI COMPARISON: MG MAMM SCREEN MARY W CAD, 06/13/2020. MG MAMM SCREEN 3DBIL CAD, 06/04/2022. INDICATIONS: Screening Calculator Name NCI Breast Cancer Risk Assessment Tool 5 Year Breast Cancer Risk 2.70% Lifetime Breast Cancer Risk 15.10% Personal Breast Cancer No Personal Ovarian Cancer No Treatments None Family Cancers Mother with breast cancer at age 71; Aunt-maternal with breast cancer at age 60; Father with lung cancer at age 49. LOCATION: [facility] [place] BREAST COMPOSITION: Scattered areas fibroglandular density. FINDINGS: DIAGNOSTIC CATEGORY 1--NEGATIVE. NO CHANGE FROM COMPARISON ASSESSMENT. Scattered benign-appearing calcifications are present. RIGHT BREAST: No significant suspicious finding. LEFT BREAST: No significant suspicious finding. RECOMMENDATIONS: ROUTINE MAMMOGRAM AND CLINICAL EVALUATION IN 12 MONTHS. PLEASE NOTE: A NORMAL MAMMOGRAM DOES NOT EXCLUDE THE POSSIBILITY OFBREAST CANCER. A CLINICALLY SUSPICIOUS PALPABLE LUMP SHOULD BE BIOPSIED. Dictated by: Adan Hopper MD on 10/13/2023 at 07:56 Approved by: Adan Hopper MD on 10/13/2023 at 07:57 Dictated By: Adan Hopper M.D. Signed By:10/13/23 0758 DD/ 0757 TD/TT: Wheel Filler: us Jorge Mauro MD [facility] Final Result documented in this encounter Visit Diagnoses Not on filedocumented in this encounter Care Teams Immigration Services Officer Relationship Specialty Start Date End Date Jorge Mauro MD [address] [facility] 110 [place] [address] PCP - ACO Reach 04/22/23 01/04/25 Jorge Mauro MD [address] [facility] 110 [place] [address] PCP - General Internal Medicine 05/25/23 Jorge Mauro MD [address] [facility] 110 [place] [address] PCP - ACO Reach 01/12/25 03/01/25 documented as of this encounter
--- OUTSIDE RECORDS SUMMARY | 2025-05-25 13:56 | XMS_ITS | Encounter Summary ---
Author Organization [facility] Address [address] [facility] [place] [address] Care Team Providers Care Architectural Drafting Instructor Name Role Phone Jorge Mauro MD Unavailable [phone] Jorge Mauro MD Primary Care Provider [phone] Jorge Mauro MD Unavailable [phone] Encounter Details Date Type Department Care Team (Late Contact Info) Description 01/26/2024 Abstract [facility] [address] [facility] 110 [place] [phone] Jorge Mauro MD 112 [facility] 110 [place], [place] [phone] Social History Tobacco Use Types Packs/Day Years [...] Office Visit [facility] [address] [facility] 110 [place] [phone] Jorge Mauro MD 112 [facility] 110 [place], [place] [phone] documented as of this encounter Visit Diagnoses Not on filedocumented in this encounter Care Teams Architectural Drafting Instructor Relationship Specialty Start Date End Date Jorge Mauro MD [address] [place] [address] PCP - ACO Reach 04/22/23 01/04/25 Jorge Mauro MD [address] [place] [address] PCP - General Internal Medicine 05/25/23 Jorge Mauro MD [address] [place] [address] PCP - ACO Reach 01/12/25 03/01/25 documented as of this encounter
--- OUTSIDE RECORDS SUMMARY | 2025-05-25 13:56 | XMS_ITS | Clinical Summary ---
Author Organization [facility] Address [address] [place] [address] Care Team Providers Care Carrier Packer Name Role Phone Unavailable Primary Care Provider Unavailabl e Social History Tobacco Use Types Packs/Day Years Used Date Smoking Tobacco: Never Assessed Comments Unknown Sex and Gender Information Value Date Recorded Sex Assigned at Not on file Legal Sex Female 9:41 PM EDT Gender Identity Not on file Sexual Orientation Not on file Last Filed Vital Signs Vital Sign Reading Time Taken Comments Blood Pressure 119/71 04/14/2019 12:21 PM EDT Pulse - - Temperature - - Respiratory Rate - - Oxygen Saturation 98% 04/14/2019 12:19 PM EDT Inhaled Oxygen Concentration - - Weight 106 kg (233 lb) 04/14/2019 12:19 PM EDT Height 165.1 cm (5' 5 ) 04/14/2019 12:19 PM EDT Body Mass Index 38.77 04/14/2019 12:19 PM EDT Plan of Treatment Not on file
--- OUTSIDE RECORDS SUMMARY | 2025-05-25 13:56 | XMS_ITS | Encounter Summary ---
Author Organization [facility] Address [address] [place] [address] Care Team Providers Care House Painting Instructor Name Role Phone Jorge Mauro MD Unavailable [phone] Jorge Mauro MD Primary Care Provider [phone] Jorge Mauro MD Unavailable [phone] Encounter Details Date Type Department Care Team (Late Contact Info) Description 07/29/2023 Telephone [facility] [address] [place] [phone] Yves Taylor MD [address] [place] [address] Social History Tobacco Use Types Packs/Day Years [...] Upcoming Encounters Date Type Department Care Team ([facility] Contact Info) Description 07/09/2025 1:45 PM EDT Office Visit [facility] [address] [facility] 110 [place] [phone] Jorge Mauro MD [address] [facility] 110 [place] [address] documented as of this encounter Visit Diagnoses Not on filedocumented in this encounter Care Teams House Painting Instructor Relationship Specialty Start Date End Date Jorge Mauro MD [address] [place] [address] PCP - ACO Reach 04/22/23 01/04/25 Jorge Mauro MD [address] [place] [address] PCP - General Internal Medicine 05/25/23 Jorge Mauro MD [address] [facility] 110 [place] [address] PCP - ACO Reach 01/12/25 03/01/25 documented as of this encounter
--- OUTSIDE RECORDS SUMMARY | 2025-05-25 13:56 | XMS_ITS | Encounter Summary ---
Author Organization [facility] Address [address] [facility] [place] [address] Care Team Providers Care Flooring Helper Name Role Phone Jorge Mauro MD Primary Care Provider [phone] Encounter Details Date Type Department Care Team (Late st Contact Info) Description 05/24/2025 Bamboo flowsheet [facility] [address] [place] [address] Lia Doty, ACCOUNT DEVELOPMENT MANAGER [address] [place], [place] [phone] Social History Tobacco Use Types Packs/Day Years [...] week 05/21/2024 How often do you attend taoist or faith serv ices? Never 05/21/2024 Do you belong to any clubs o r organizations such as taoist groups, unions, fraternal or athletic groups, or [...] Recorded Patient Health Questionnaire-2 Score 2 05/24/2025 [facility] - Occupational Stress Questionnaire Answer Date Recorded [...] any time in the past 12 m [facility], were you homeless or living [...] 1:45 PM EDT Office Visit [facility] [address] [facility] 110 [place] [phone] Jorge Mauro MD [address] [facility] 110 [place] [address] documented as of this encounter Visit Diagnoses Not on filedocumented in this encounter Care Teams Flooring Helper Relationship Specialty Start Date End Date Jorge Mauro MD [address] [facility] 110 [place] [address] PCP - General Internal Medicine 05/25/23 documented as of this encounter
--- OUTSIDE RECORDS SUMMARY | 2025-05-25 13:56 | XMS_ITS | Clinical Summary ---
Author Organization [facility] Healthcare Address [address] [place] [address] Care Team Providers Care Manager Graphic Name Role Phone Jorge Mauro MD Primary Care Provider [phone] Allergies Active Allergy Reactions Criticality Noted Date Comments Dextroamphetamine Rash Low 07/14/2017 Dextromethorphan Rash Low 05/25/2023 Medications albuterol (2.5 MG/3ML) 0.083% nebulizer solution Take 2.5 mg by nebulization every 8 (eight) hours if needed for wheezing or shortness of breath. Active Restasis 0.05 % ophthalmic emulsion Administer into both eyes every 12 (twelve) hours. 05/18/20 23 Active lithium ER (Lithobid) 300 MG 12 hr tablet Take 300 mg by mouth in the morning and 300 mg before bedtime. 03/21/20 23 Active loratadine (Claritin) 10 MG tablet Take 10 mg by mouth in the morning. Active prazosin (Minipress) 2 MG capsule Take 2 mg by mouth at bedtime. Active cyclobenzaprin e (Flexeril) 10 MG tabletIndicati ons:Muscle spasm ONE TABLET BY MOUTH AT BEDTIME NEEDED 90 tablet 1 04/06/20 24 Active B Complex Vitamins (vitamin B complex) tabletIndicati ons:B12 deficiency TAKE 1 TABLET BY MOUTH DAILY 90 tablet 1 04/06/20 24 Active montelukast (Singulair) 10 MG tabletIndicati ons:Acute sinusitis, recurrence not specified, unspecified location TAKE 1 TABLET BY MOUTH EVERY DAY 90 tablet 3 07/27/20 24 Active acetaminophen (Tylenol) 500 MG tablet Take 500 mg by mouth every 8 (eight) hours if needed Active cyanocobalamin (Vitamin B-12) 250 MCG tablet Take 250 mcg by mouth in the morning. Active senna-docusate (Jyoti-Colace) 8.6-50 MG tablet Take 1 tablet by mouth every 12 (twelve) hours if needed 08/25/20 24 Active tiZANidine (Zanaflex) 4 MG tabletIndicati ons:Muscle spasm TAKE 1 TABLET BY MOUTH TWICE A DAY 180 tablet 4 08/29/20 24 Active primidone (Mysoline) 50 MG tablet Take 50 mg by mouth in the morning and 50 mg before bedtime. 11/12/20 24 Active venlafaxine XR (Effexor XR) 150 MG 24 hr capsule Take 150 mg by mouth Daily 11/10/20 24 Active LORazepam (Ativan) 0.5 MG tablet Take 0.5 mg by mouth Daily as needed for anxiety 12/15/19 25 Active traZODone (Desyrel) 150 MG tablet Take 150 mg by mouth as needed at bedtime for sleep 11/18/20 24 Active albuterol HFA (Ventolin HFA) 90 mcg/act inhalerIndicat ions:Pulmonary emphysema, unspecified emphysema type (HCC) Inhale 2 puffs every 6 (six) hours if needed for wheezing or shortness of breath 18 g 12/25/19 25 Active sertraline (Zoloft) 100 MG tablet Take 100 mg by mouth at bedtime 02/16/20 25 Active fluticasone (Flonase) 50 MCG/ACT nasal sprayIndicatio ns:Non-seasona l allergic rhinitis, unspecified trigger Administer 2 sprays into each nostril Daily 16 g 04/09/20 25 Active Breo Ellipta 200-25 MCG/ACT aerosol powderIndicati ons:Pulmonary emphysema, unspecified emphysema type (HCC) INHALE 1 PUFF BY MOUTH ONCE A DAY 60 each 5 04/30/20 25 Active enalapril (Vasotec) 5 MG tabletIndicati ons:HTN (hypertension) , benign TAKE 1 TABLET BY MOUTH EVERY DAY 90 tablet 3 05/09/20 25 Active omeprazole (PriLOSEC) [address] capsuleIndicat ions:Gastroeso phageal reflux disease, unspecified whether esophagitis present TAKE 1 CAPSULE BY MOUTH EVERY DAY 90 capsule 3 05/14/20 25 Active alendronate (Fosamax) 70 MG tabletIndicati ons:Osteoarthr itis of lumbar spine with myelopathy TAKE 1 TABLET BY MOUTH ONE TIME PER WEEK 12 tablet 3 05/15/20 25 Active omeprazole (PriLOSEC) [address] capsuleIndicat ions:Gastroeso phageal reflux disease, unspecified whether esophagitis present TAKE 1 CAPSULE BY MOUTH EVERY DAY 90 capsule 3 05/15/20 24 025 Discontinued enalapril (Vasotec) 5 MG tabletIndicati ons:HTN (hypertension) , benign TAKE 1 TABLET BY MOUTH EVERY DAY 90 tablet 3 05/15/20 24 025 Discontinued celecoxib (CeleBREX) 200 MG capsuleIndicat ions:Osteoarth ritis of lumbar spine with myelopathy Take 1 capsule (200 mg) by mouth in the morning and 1 capsule (200 mg) before bedtime. 60 capsule 11 05/22/20 24 025 alendronate (Fosamax) 70 MG tabletIndicati ons:Osteoarthr itis of lumbar spine with myelopathy TAKE 1 TABLET BY MOUTH ONE TIME PER WEEK 12 tablet 3 06/13/20 24 025 Discontinued Breo Ellipta 200-25 MCG/ACT aerosol powderIndicati ons:Pulmonary emphysema, unspecified emphysema type (HCC) INHALE 1 PUFF ONCE DAILY FOR 30 DAYS 60 each 5 10/03/20 24 025 Discontinued Active Problems Problem Noted Date Diagnosed Date S/P deep brain stimulator placement 09/08/2024 Lumbar paraspinal muscle spasm 03/16/2024 Assessment & Plan (03/16/2024 3:38 PM EDT): PT - [facility]. Parkinson's disease with dys kinesia without fluctuating manifestations 01/19/2024 Nonspecific paroxysmal spell 06/08/2023 B12 deficiency 06/08/2023 Assessment & Plan (03/16/2024 3:39 PM EDT): (Continue B12 SL.) Reorder B12 panel & B6. Assessment & Plan (08/16/2023 12:14 PM EDT): (Continue B12 SL.) Check on / reorder B12 panel & B6. Assessment & Plan (06/10/2023 1:28 PM EDT): (Continue B12, convert back to SL.) B12 panel, B6. Muscle spasm 06/08/2023 Assessment & Plan (03/16/2024 3:39 PM EDT): (Continue current regimen.) Assessment & Plan (08/16/2023 12:15 PM EDT): (Continue current regimen.) Family history of arteriosclerotic cardiovascula r disease 06/08/2023 Overview (06/08/2023): --- mother. Abnormal blood chemistry level 05/25/2023 Abnormal glucose tolerance test 05/25/2023 Anemia, unspecified 05/25/2023 Anterior to posterior tear o f superior glenoid labrum of left shoulder 05/25/2023 Superior glenoid labrum lesion of left shoulder 05/25/2023 Anxiety state 05/25/2023 Asthma with status asthmaticus 05/25/2023 Exacerbation of asthma 05/25/2023 Bilateral hearing loss 05/25/2023 Bilateral tinnitus 05/25/2023 Cardiomegaly 05/25/2023 Carotid stenosis, bilateral 05/25/2023 Assessment & Plan (03/16/2024 3:40 PM EDT): Plan redo US carotids 2024 Assessment & Plan (08/16/2023 12:15 PM EDT): Plan redo US carotids 2024. Assessment & Plan (06/10/2023 1:19 PM EDT): US carotids. Chronic obstructive pulmonary disease 05/25/2023 Congestive heart failure 05/25/2023 Depressive disorder 05/25/2023 Diverticulosis of colon 05/25/2023 Exudative age-related macular degeneration 05/25 Nonexudative age-related macular degeneration Follicular cyst of ovary 05/25/2023 Essential hypertension 05/25/2023 Overview (08/29/2024): Last Assessment & Plan: Stable, complaint on ENALAPRIL MALEATE 5 MG TABLET Take by mouth. PRAZOSIN 2 MG CAPSULE Take 2 mg by mouth once daily. Follows with PCP. Last 3 Encounter BP Readings: Date: BP: 08/21/2024 113/98 08/21/2024 113/75 03/28/2024 126/87 Hippocampal sclerosis 05/25/2023 Overview (06/08/2023): --- L, at limits of 1.5T resolution (i.e. very mild to possibly absent). Hyperlipidemia 05/25/2023 Acquired hypothyroidism 05/25/2023 Overview (08/29/2024): Last Assessment & Plan: Stable on Synthroid Irritable bowel syndrome with constipation 05/25 Lumbar disc narrowing 05/25/2023 Major depression, single episode 05/25/2023 Myalgia, unspecified site 05/25/2023 Nuclear senile cataract 05/25/2023 Class 2 obesity with body ma ss index (BMI) of 35.0 to 35.9 in adult 05/25/2023 Overview (08/29/2024): Last Assessment & Plan: Body mass index is 35.11 kg/m . Obstructive sleep apnea 05/25/2023 Other allergic rhinitis 05/25/2023 Other primary ovarian failure 05/25/2023 Paresthesia of skin 05/25/2023 Polyneuropathy 05/25/2023 Overview (06/08/2023): --- suspected, given sensory loss R20.0. Assessment & Plan (08/16/2023 12:15 PM EDT): (q.v.) Post-traumatic osteoarthritis of left elbow 06/2 05/2023 Posttraumatic stress disorder 05/25/2023 Primary insomnia 05/25/2023 Proteinuria 05/25/2023 Seizure 05/25/2023 Sensorineural hearing loss, bilateral 05/25/2023 Sinusitis 05/25/2023 Sleep walking 05/25/2023 Status post hysterectomy 05/25/2023 Traumatic arthropathy, left shoulder 05/25/2023 Vitamin D deficiency 05/25/2023 Osteoarthritis of lumbar spine with myelopathy 0 05/20/2023 Other chronic pain 05/20/2023 Primary localized osteoarthrosis of shoulder reg ion 05/20/2023 Sciatica 05/20/2023 History of hysterectomy 04/01/2018 Former smoker 04/01/2018 Resolved Problems Problem Noted Date Diagnosed Date Resolved Date Hypertension 08/29/2024 10/02/2024 Benign essential tremor 05/25/2023 11/0 02/2024 Overview (06/10/2023): --- ? If fully physiologic. Assessment & Plan (03/16/2024 3:39 PM EDT): Surgery evaluation ongoing @ [facility]. Get MR & PHILLIP - results and images - when done. Assessment & Plan (08/16/2023 12:14 PM EDT): Pending PHILLIP scan (Sandie) & re-eval. Get these when done. Assessment & Plan (06/10/2023 1:27 PM EDT): Consult Dr. Hooper. Opinion on tremor dx. Utility of DBS. Encounters Date Type Department Care Team Description 05/24/2025 2:30 PM EDT Office Visit [facility] [address] [facility] [address] [place] [address] Lia Doty NP Diarrhea, unspecified type (Primary Dx); Exudative age-related macular degeneration, right eye, with active choroidal neovascularization (HCC); Exudative age-related macular degeneration, unspecified eye, stage unspecified (HCC); Heart failure, unspecified (HCC); Unspecified convulsions (HCC) 05/24/2025 Pensqr flowsheet [facility] [address] [place] [address] [place] [address] Lia Dtoy NP 05/24/2025 Travel 05/15/2025 Refill [facility] [address] [facility] [address] [place] [address] Jorge Mauro MD Osteoarthritis of lumbar spine with myelopathy 05/14/2025 Refill [facility] [address] [facility] [address] [place] [address] Jorge Mauro MD Gastroesophageal reflux disease, unspecified whether esophagitis present 05/11/2025 Refill [facility] [address] [facility] [address] [facility] [address] Yves Taylor MD Essential tremor 05/09/2025 Refill [facility] [address] [facility] [address] [place] [address] Jorge Mauro MD HTN (hypertension), benign 05/07/2025 Telephone [facility] [address] [facility] [address] [place] [address] Jorge Mauro MD 05/04/2025 Results Follow-Up [facility] [address] [facility] [address] [place] [address] Jorge Mauro MD Acquired hypothyroidism (Primary Dx) 05/01/2025 Clinisync Result Encounter [facility] External Department Unsolicited Provider, Generic External Data 04/29/2025 Refill [facility] [address] [facility] [address] [place] [address] Jorge Mauro MD Pulmonary emphysema, unspecified emphysema type (HCC) 04/10/2025 Abstract [facility] [address] [facility] [address] [place] [address] Jorge Mauro MD 04/10/2025 Abstract [facility] [address] [facility] [address] [place] [address] Jorge Mauro MD 04/09/2025 3:30 PM EDT Office Visit [facility] [address] [facility] [address] [place] [address] Jorge Mauro MD Routine general medical examination at health care facility (Primary Dx); ACP (advance care planning); Parkinson's disease with dyskinesia without fluctuating manifestations (HCC); Sleep walking; Pulmonary emphysema, unspecified emphysema type (HCC); Carotid stenosis, bilateral; Essential hypertension ; Acquired hypothyroidism ; Non-seasonal allergic rhinitis, unspecified trigger 04/09/2025 Bamboo flowsheet [facility] [address] [place] [address] [place] [address] Jorge Mauro MD 04/09/2025 Travel 03/02/2025 Refill [facility] [address] [place] [address] [place] [address] Ashley Nava PA Osteoarthritis of lumbar spine with myelopathy from Last 3 Months Immunizations Immunization Administration Dates Next Due DTP 10/14/2020 Influenza, injectable, quadrivalent 08/26/2016 Influenza, injectable, quadr ivalent, preservative free 08/30/2023,09/16/2021,10/15/2020,10/30 Influenza, seasonal, injectable 10/01/2014 Influenza, seasonal, injecta ble, preservative free 10/02/2024,08/24/2017 Influenza, seasonal, intrade rmal, preservative free 10/10/2010 Pneumococcal Conjugate PCV 13 07/26/2015 Pneumococcal Polysaccharide PPSV23 06/03/2015, Family History Medical History Relation Name Comments COPD Father Nissa and Scotty Johnson Cancer Father Nissa and Scotty Johnson Heart disease Father Nissa and Scotty Johnson Dementia Mother Heart failure Mother Depression Sister Dayna Relation Name Status Comments Father Nissa and Scotty Johnson Mother Sister Dayna Social History Tobacco Use Types Packs/Day Years [...] week 05/21/2024 How often do you attend holiness or druze serv ices? Never 05/21/2024 Do you belong to any clubs o r organizations such as holiness groups, unions, fraternal or athletic groups, or [...] Recorded Patient Health Questionnaire-2 Score 2 05/24/2025 [facility] - Occupational Stress [...] [facility] were you [facility] or living in a [place] [facility] [place] facility (including now)? No 05/21/2024 Comments Unknown Sex [...] Mass Index 32.95 05/24/2025 2:26 PM EDT Plan of Treatment Upcoming Encounters Date Type Department Care Team (Late st Contact Info) Description 07/09/2025 1:45 PM EDT Office Visit [facility] [address] [place] [address] Jorge Mauro MD [address] [facility] [address] [place] [address] Health Maintenance Due Date Last Done Comments CT Colonography 1965 Colonoscopy 1965 FIT 1965 Sigmoidoscopy 1965 FOBT 07/04/2021 07/04/2020 Mammogram 12/29/2025 12/29/2024, 09/29, 06/04/2022, Additional history exists Medicare Annual Wellness (AWV) 04/09/2026 04/09/2025 , 08/30/2023 Colorectal Cancer Screening 09/23/2026 FIT-DNA 09/23/2026 09/23/2023, 07/04/2020, 0804/2020 Influenza Vaccine Completed 10/02/2024, , 09/16/2021, Additional history exists Procedures Procedure Name Priority Date/Time Associated Diagnosis Comments TSH Routine 05/24/2025 2:50 PM EDT Acquired hypothyroidism T3, FREE Routine 05/24/2025 2:50 PM EDT Acquired hypothyroidism T4, FREE Routine 05/24/2025 2:50 PM EDT Acquired hypothyroidism CT BRAIN WO IVCON 05/01/2025 11: 26 AM EDT LITHIUM Routine 04/13/2025 8:12 AM EDT T4, FREE Routine 04/13/2025 8:12 AM EDT Acquired hypothyroidism TSH Routine 04/13/2025 8:12 AM EDT Acquired hypothyroidism LIPID PANEL Routine 04/13/2025 8:12 AM EDT Carotid stenosis, bilateral Essential hypertension COMPREHENSIVE METABOLIC PANEL Routine 04/13/2025 8:12 AM EDT Routine general medical examination at health care facility Parkinson's disease with dyskinesia without fluctuating manifestations (HCC) CBC (INCLUDES DIFF/PLT) Routine 04/13/2025 8:12 AM EDT Routine general medical examination at health care facility Parkinson's disease with dyskinesia without fluctuating manifestations (HCC) MM TOMOSYNTHESIS SCREENING BI 12/29/2024 3:07 PM EST LAB COLOGUARD COLON CANCER SCREEN Routine 09/23/2023 9:46 AM EDT Screening for colon cancer from Last 3 Months or Most Recently Relevant to Health Maintenance Results * T3, free (05/24/2025 2:50 PM EDT) T3, FREE 2.5 2.3 - 4.2 pg/mL [facility] Blood Venous blood specimen / Unknown 05/24/2025 2:50 PM EDT 05/24/2025 2:50 PM EDT Narrative Resulting Agency Comment Performing Organization Information Site ID: QPT Name: [facility] [facility] Address: [address] [place] [address], [address] [place] [phone] Director: Emilio Baxter MD Jorge Mauro MD LAB BLOOD ORDERABLES Final Res ult Performing Organization Address [facility] de Phone Number [facility] * (ABNORMAL) TSH (05/24/2025 2:50 PM EDT) Only the most recent of2 resultswithin the time period is included. TSH 14.88(H) 0.40 - 4.50 mIU/L [facility] Blood Venous blood specimen / Unknown 05/24/2025 2:50 PM EDT 05/24/2025 2:50 PM EDT Narrative Resulting Agency Comment Performing Organization Information Site ID: QPT Name: [facility] [employer] [facility] Address: [address] [place] [address], [address] [place] [phone] Director: Emilio Baxter MD Jorge Mauro MD LAB BLOOD ORDERABLES Final Res ult Performing Organization Address [facility] de Phone Number [facility] * (ABNORMAL) T4, free (05/24/2025 2:50 PM EDT) Only the most recent of2 resultswithin the time period is included. T4, FREE 0.7(L) 0.8 - 1.8 ng/dL [facility] Blood Venous blood specimen / Unknown 05/24/2025 2:50 PM EDT 05/24/2025 2:50 PM EDT Narrative Resulting Agency Comment Performing Organization Information Site ID: QPT Name: [facility] Address: [address] [place] [address], [address] [place] [phone] Director: Emilio Baxter MD Jorge Mauro MD LAB BLOOD ORDERABLES Final Res ult [facility] * CT BRAIN WO IVCON (05/01/2025 11:26 AM EDT) Anatomical Region Laterality Modality Other 05/01/2025 11:2 6 AM EDT Narrative 05/01/2025 11:46 AM EDT * * [...] sulci, gyri, ventricles, CSF spaces, brain, bones and skull base with senescent volume loss, microvascular ischemia, accentuation of CSF spaces, ventricular dilation and atherosclerotic vascular calcification. No acute infarct/hemorrhage, mass, mass effect or collections. IMPRESSION: Stable head CT with bilateral uncomplicated DBS placement. Paper Baler: PSCB Transcribe Date/Time: May 01 2025 11:42A Dictated by : SHEREEN COURTNEY MD This examination was interpreted and the report reviewed and electronically signed by: SHEREEN COURTNEY MD on May 01 2025 11:43AM EST [id number]^ACN Procedure Note Radiology, Radiologist, - 05/01/2025 * * *Final Report* * [...] sulci, gyri, ventricles, CSF spaces, brain, bones and skull base with senescent volume loss, microvascular ischemia, accentuation of CSF spaces, ventricular dilation and atherosclerotic vascular calcification. No acute infarct/hemorrhage, mass, mass effect or collections. IMPRESSION: Stable head CT with bilateral uncomplicated DBS placement. Paper Baler: PSCB Transcribe Date/Time: May 01 2025 11:42A Dictated by : SHEREEN COURTNEY MD This examination was interpreted and the report reviewed and electronically signed by: SHEREEN COURTNEY MD on May 01 2025 11:43AM EST [id number]^ACN [facility] External Data Provider [facility] Final Result * (ABNORMAL) CBC and differential (04/13/2025 8:12 AM EDT) WHITE BLOOD CELL COUNT 9.2 3.8 - 10.8 Thousand/u L [facility] RED BLOOD CELL COUNT 4.02 3.80 - 5.10 Million/uL [facility] HEMOGLOBIN 12.3 11.7 - 15.5 g/dL [facility] HEMATOCRIT 39.3 35.0 - 45.0 % [facility] MCV 97.8 80.0 - 100.0 fL [facility] MCH 30.6 27.0 - 33.0 pg [facility] MCHC 31.3(L) 32.0 - 36.0 g/dL [facility] Comment: For adults, a slight decrease in the calculated MCHC value (in the range of 30 to 32 g/dL) is most likely not clinically significant; however, it should be interpreted with caution in correlation with other red cell parameters and the patient's clinical condition. RDW 15.4(H) 11.0 - 15.0 % [facility] PLATELET COUNT 361 140 - 400 Thousand/u L [facility] MPV 12.2 7.5 - 12.5 fL [facility] ABSOLUTE NEUTROPHILS 5,244 1,500 - 7,800 cells/uL [facility] ABSOLUTE LYMPHOCYTES 2,291 850 - 3,900 cells/uL [facility] ABSOLUTE MONOCYTES 856 200 - 950 cells/uL [facility] ABSOLUTE EOSINOPHILS 699(H) 15 - 500 cells/uL [facility] ABSOLUTE BASOPHILS 110 0 - 200 cells/uL [facility] NEUTROPHILS 57 % [facility] LYMPHOCYTES 24.9 % [facility] MONOCYTES 9.3 % [facility] EOSINOPHILS 7.6 % [facility] BASOPHILS 1.2 % [facility] Blood Venous blood specimen / Unknown 04/13/2025 8:12 AM EDT 04/13/2025 8:15 AM EDT Narrative [facility] - 04/14/2025 12:05 PM EDT FASTING:YES FASTING: YES Resulting Agency Comment Performing Organization Information Site ID: QPT Name: [facility] Address: [address] [place] [address], [address] [place] [phone] Director: Emilio Baxter MD us Jorge Mauro MD LAB BLOOD ORDERABLES Final Res ult Performing Organization Address [facility] de Phone Number [facility] * [place] level (04/13/2025 8:12 AM EDT) LITHIUM 1.0 0.6 - 1.2 mmol/L [facility] Comment: Your request to have a duplicate copy faxed has been acknowledged. Queued to: [id number] 04/13/2025 8:12 AM EDT 04/13/2025 8:15 AM EDT Narrative [facility] - 04/14/2025 12:05 PM EDT FASTING:YES FASTING: YES Resulting Agency Comment Performing Organization Information Site ID: QPT Name: [facility] Address: [address] [place] [address], [address] [place] [phone] Director: Emilio Baxter MD us Jorge Mauro MD LAB BLOOD ORDERABLES Final Res ult Performing Organization Address [facility]/State/ZIP Co de Phone Number [facility] * (ABNORMAL) Lipid panel (04/13/2025 8:12 AM EDT) CHOLESTEROL, TOTAL 213(H) <200 mg/dL [facility] HDL CHOLESTEROL 74 > OR = 50 mg/dL [facility] TRIGLYCERIDES 75 <150 mg/dL [facility] LDL CHOLESTEROL 122(H) mg/dL (calc) [facility] Comment: Reference range: <100 Desirable range <100 mg/dL for primary prevention; <70 mg/dL for patients with CHD or diabetic patients with > or = 2 CHD risk factors. LDL-C is now calculated using the Andre calculation, which is a validated novel method providing better accuracy than the Friedewald equation in the estimation of LDL-C. Sanjay SS et al. HOWIE. 2013;310(19): 6681-2819 (http://education.Tap.Me/faq/VWG452) CHOL/HDLC RATIO 2.9 <5.0 (calc) [facility] NON HDL CHOLESTEROL 139(H) <130 mg/dL (calc) [facility] Comment: For patients with diabetes plus 1 major ASCVD risk factor, treating to a non-HDL-C goal of <100 mg/dL (LDL-C of <70 mg/dL) is considered a therapeutic option. Blood Venous blood specimen / Unknown 04/13/2025 8:12 AM EDT 04/13/2025 8:15 AM EDT Narrative [facility] - 04/14/2025 12:05 PM EDT FASTING:YES FASTING: YES Resulting Agency Comment Performing Organization Information Site ID: QPT Name: [facility] Address: [address] [place] [address], [address] [place] [phone] Director: Emilio Baxter MD us Jorge Mauro MD LAB BLOOD ORDERABLES Final Res ult [facility] * (ABNORMAL) Comprehensive metabolic panel (04/13/2025 8:12 AM EDT) Glucose 88 65 - 99 mg/dL [facility] Comment: Fasting reference interval BUN 23 7 - 25 mg/dL [facility] Creatinine 1.03 0.50 - 1.05 mg/dL [facility] EGFR 62 > OR = 60 mL/min/1. 73m2 [facility] BUN/CREATININE RATIO SEE NOTE: 6 - 22 (calc) [facility] Comment: Not Reported: BUN and Creatinine are within reference range. Sodium 140 135 - 146 mmol/L [facility] Potassium, Bld 5.5(H) 3.5 - 5.3 mmol/L [facility] Chloride 105 98 - 110 mmol/L [facility] Carbon Dioxide 29 20 - 32 mmol/L [facility] Calcium 9.6 8.6 - 10.4 mg/dL [facility] PROTEIN, TOTAL 6.6 6.1 - 8.1 g/dL [facility] ALBUMIN 4.0 3.6 - 5.1 g/dL [facility] GLOBULIN 2.6 1.9 - 3.7 g/dL (calc) [facility] ALBUMIN/GLOBULIN RATIO 1.5 1.0 - 2.5 (calc) [facility] BILIRUBIN, TOTAL 0.3 0.2 - 1.2 mg/dL [facility] ALKALINE PHOSPHATASE 78 37 - 153 U/L [facility] AST 15 10 - 35 U/L [facility] ALT 13 6 - 29 U/L [facility] Blood Venous blood specimen / Unknown 04/13/2025 8:12 AM EDT 04/13/2025 8:15 AM EDT Narrative [facility] - 04/14/2025 12:05 PM EDT FASTING:YES FASTING: YES Resulting Agency Comment Performing Organization Information Site ID: QPT Name: [facility] Address: [address] [place] [phone] Director: Emilio Baxter MD us Jorge Mauro MD LAB BLOOD ORDERABLES Final Res ult Performing Organization Address City/State/[facility] Co de Phone Number [facility] * MM TOMOSYNTHESIS SCREENING BI (12/29/2024 3:07 PM EST) Anatomical Region Laterality Modality Other 12/29/2024 3:07 PM EST Narrative 12/29/2024 3:08 PM EST [address] [address] Mammography Report Signed Patient: NIURKA JOHNSON I MR#: [id number] : 1965 Acct:[id number] Age/Sex: 59 / F ADM Date: 12/29/24 Loc: MAMMO Attending Dr: JORGE MAURO Ordering Physician: JORGE MAURO Results: Date of Service: 12/29/24 Follow Up: Procedure(s): MM tomosynthesis screening BI Accession Number(s): [id number] cc: JORGE MAURO Patient Name: NIURKA JOHNSON MR#: [id number] : 1965 Exam Date: 12/29/2024 Ordering Doctor: DR JORGE MAURO M.D. RADIOLOGY REPORT PROCEDURE: MM TOMOSYNTHESIS SCREENING BI COMPARISON: MG MAMM SCREEN 3D MARY CAD, 06/04/2022. MM TOMOSYNTHESIS SCREENING BI, 10/12/2023. INDICATIONS: Screening Calculator Name NCI Breast Cancer Risk Assessment Tool 5 Year Breast Cancer Risk 2.90% Lifetime Breast Cancer Risk 14.40% Personal Breast Cancer No Personal Ovarian Cancer No Treatments None Family Cancers Mother with breast cancer at age 71; Aunt-maternal with breast cancer at age 60; Father with lung cancer at age 49. LOCATION: [facility] BREAST COMPOSITION: There are scattered areas of fibroglandular density. FINDINGS: DIAGNOSTIC CATEGORY 1--NEGATIVE. NO CHANGE FROM COMPARISON ASSESSMENT. RIGHT BREAST: No significant suspicious finding. LEFT BREAST: No significant suspicious finding. RECOMMENDATIONS: ROUTINE MAMMOGRAM AND CLINICAL EVALUATION IN 12 MONTHS. PLEASE NOTE: A NORMAL MAMMOGRAM DOES NOT EXCLUDE THE POSSIBILITY OF BREAST CANCER. A CLINICALLY SUSPICIOUS PALPABLE LUMP SHOULD BE BIOPSIED. Dictated by: Adan Hopper MD on 12/29/2024 at 15:06 Approved by: Adan Hopper MD on 12/29/2024 at 15:07 Dictated By: Adan Hopper M.D. Signed By: 12/29/24 1508 DD/ 1507 TD/TT: Paper Baler: Procedure Note Radiology, Radiologist, - 12/29/2024 [place] [address] Mammography Report Signed Patient: NIURKA JOHNSON IMR#: [id number] : 1965Acct:[id number] Age/Sex: 59 / FADM Date: 12/29/24 Loc: MAMMO Attending Dr: JORGE MAURO Ordering Physician: JORGE MAUROResults: Date of Service: 12/29/24Follow Up: Procedure(s): MM tomosynthesis screening BI Accession Number(s): [id number] cc: [id number] Patient Name: NIURKA JOHNSON MR#: [id number] : 1965 Exam Date: 12/29/2024 Ordering Doctor: DR JORGE MAURO M.D. RADIOLOGY REPORT PROCEDURE: MM TOMOSYNTHESIS SCREENING BI COMPARISON: MG MAMM SCREEN 3D MARY CAD, 06/04/2022. MM TOMOSYNTHESIS SCREENING BI, 10/12/2023. INDICATIONS: Screening Calculator Name NCI Breast Cancer Risk Assessment Tool 5 Year Breast Cancer Risk 2.90% Lifetime Breast Cancer Risk 14.40% Personal Breast Cancer No Personal Ovarian Cancer No Treatments None Family Cancers Mother with breast cancer at age 71; Aunt-maternal with breast cancer at age 60; Father with lung cancer at age 49. LOCATION: [facility] BREAST COMPOSITION: There are scattered areas of fibroglandulardensity. FINDINGS: DIAGNOSTIC CATEGORY 1--NEGATIVE. NO CHANGE FROM COMPARISON ASSESSMENT. RIGHT BREAST: No significant suspicious finding. LEFT BREAST: No significant suspicious finding. RECOMMENDATIONS: ROUTINE MAMMOGRAM AND CLINICAL EVALUATION IN 12 MONTHS. PLEASE NOTE: A NORMAL MAMMOGRAM DOES NOT EXCLUDE THE POSSIBILITY OFBREAST CANCER. A CLINICALLY SUSPICIOUS PALPABLE LUMP SHOULD BE BIOPSIED. Dictated by: Adan Hopper MD on 12/29/2024 at 15:06 Approved by: Adan Hopper MD on 12/29/2024 at 15:07 Dictated By: Adan Hopper M.D. Signed By:12/29/24 1508 DD/ 1507 TD/TT: Paper Baler: us Jorge Mauro MD [facility] Final Result * Cologuard?? colon cancer screening (09/23/2023 9:46 AM EDT) NONINV COLON CA DNA+OCC BLD SCRN STL-IMP Negative Negative 10/02/2023 1:34 AM EDT [facility] (CLIA #:[id number]) Comment: NEGATIVE TEST RESULT. A negative Cologuard result indicates a low likelihood that a colorectal cancer (CRC) or advanced adenoma (adenomatous polyps with more advanced pre-malignant features) is present. The chance that a person with a negative Cologuard test has a colorectal cancer is less than 1 in 1500 (negative predictive value >99.9%) or has an advanced adenoma is less than 5.3% (negative predictive value 94.7%). These data are based on a prospective cross-sectional study of 10,000 individuals at average risk for colorectal cancer who were screened with both Cologuard and colonoscopy. (Lencho Flores et al, N Engl J Med 2014;370(14):2769-2356) The normal value (reference range) for this assay is negative. COLOGUARD RE-SCREENING RECOMMENDATION: Periodic colorectal cancer screening is an important part of preventive healthcare for asymptomatic individuals at average risk for colorectal cancer. Following a negative Cologuard result, the [place] Cancer Society and U.S. Multi-Society Task Force screening guidelines recommend a Cologuard re-screening interval of 3 years. References: [place] [employer] Guideline for Colorectal Cancer Screening: https://www.cancer.org/cancer/fmbxe-lgkpwj-urunio/flkedcstr-izcaixucn-topowdn/ac s-rec ommendations.html.; Gold WILBURN, Yarely MARIA, Lizzy De LeonK, Colorectal Cancer Screening: Recommendations for Physicians and Patients from the U.S. Multi-Society Task Force on Colorectal Cancer Screening , Am J Gastroenterology 2017; 112:5480-4530. TEST DESCRIPTION: Composite algorithmic analysis of stool DNA-biomarkers with hemoglobin immunoassay. Quantitative values of individual biomarkers are not reportable and are not associated with individual biomarker result reference ranges. Cologuard is intended for colorectal cancer screening of adults of either sex, 45 years or older, who are at average-risk for colorectal cancer (CRC). Cologuard has been approved for use by the U.S. FDA. The performance of Cologuard was established in a cross sectional study of average-risk adults aged 50-84. Cologuard performance in patients ages 45 to 49 years was estimated by sub-group analysis of near-age groups. Colonoscopies performed for a positive result may find as the most clinically significant lesion: colorectal cancer [4.0%], advanced adenoma (including sessile serrated polyps greater than or equal to 1cm diameter) [20%] or non- advanced adenoma [31%]; or no colorectal neoplasia [45%]. These estimates are derived from a prospective cross-sectional screening study of 10,000 individuals at average risk for colorectal cancer who were screened with both Cologuard and colonoscopy. (Lencho Flores et al, N Engl J Med 2014;370(14):3067-6822.) Cologuard may produce a false negative or false positive result (no colorectal cancer or precancerous polyp present at colonoscopy follow up). A negative Cologuard test result does not guarantee the absence of CRC or advanced adenoma (pre-cancer). The current Cologuard screening interval is every 3 years. ([place] Cancer Society and U.S. Multi-Society Task Force). Cologuard performance data in a 10,000 patient pivotal study using colonoscopy as the reference method can be accessed at the following location: www.[employer].kontoblick/results. Additional description of the Cologuard test process, warnings and precautions can be found at www.cologuard.com. Stool specimen (specimen) Rectal contents / Unknown 09/23/2023 9:46 AM EDT 09/25/2023 5:02 PM EDT Jorge Mauro MD [facility] LUIS PETIT Final Result .[employer] (CLIA #:[id number]) [address] [address], [facility] (CLIA #:[id number]) [address] [id number] from Last 3 Months or Most Recently Relevant to Health Maintenance Insurance MEDICAID [place] [employer] MEDICARE ADVANTAGE Advance Directives Documents on File Type Date Recorded Patient Lead Quality Control Technician Expl anation Power of Special Agent Group Insurance 07/08/2023 3:15 PM 07-08 HCPOA Advance Directives and Living Will 07/08/2023 3:14 PM 2015-07-03 Living Wi Care Teams Manager Graphic Relationship Specialty Start Date End Date Jorge Mauro MD [address] [facility] [address] [place] [address] PCP - General Internal Medicine 05/25/23
--- OUTSIDE RECORDS SUMMARY | 2025-05-25 13:56 | XMS_ITS | Encounter Summary ---
Author Organization [facility] Address [address] [place] [address] Care Team Providers Care Industrial Equipment Wirer Name Role Phone Nj MURPHY MD, Jorge Soto Primary Care Provider [phone] Source Comments In the event this information is protected by the Federal Confidentiality of Alcohol and Drug AbusePatient Records regulations: The Federal rules restrict any use of the information to criminally investigate or prosecute any alcohol or drug abuse patient.[facility] Encounter Details Date Type Department Care Team (Late st Contact Info) Description 02/08/2025 Patient Msg Neurology [address] [id number] Provider, Ccf Schedule appointments Social History Tobacco Use Types Packs/Day Years Used Date Smoking Tobacco: Former Cigarettes 0.1 13 1 1 - 1993 Smokeless Tobacco: Never Alcohol Use Standard Drinks/Week Comments Yes 0 (1 standard drink = 0.6 oz pure alcohol) occasioanlly, stopped drinking early [facility] Utilities Answer Date Recorded In the past 12 months has [employer], gas, oil, or water [employer] threatened to shut off services in your home? No 08/25/2024 PHQ-2 Answer Date Recorded PHQ-2 score 1 12/26/2024 Hunger Vital Sign Answer Date Recorded Within [...] any time in the past 12 m [facility], were you homeless or living in a residential (including now)? No 08/25/2024 Area Deprivation Index Answer Date Mario rded National Score (1-100), lower number is lower ri sk 73 08/14/2024 State Score (1-10), lower number is lower risk 6 08/14/2024 Data from: https://www.neighborhoodatlas.medicine.[facility].edu/. Last address used for calculation [address] [address] 08/14/2024 Comments No Sex and Gender Information Value Date Recorded Sex Assigned at Not on file Legal Sex Female 8:10 AM EST Gender Identity Not on file Sexual Orientation Not on file documented as of this encounter Plan of Treatment Not on file documented as of this encounter Visit Diagnoses Not on filedocumented in this encounter Care Teams Industrial Equipment Wirer Relationship Specialty Start Date End Date Jorge Mauro II, MD PCP - General 08/25/07 documented as of this encounter
--- OUTSIDE RECORDS SUMMARY | 2025-05-25 13:56 | XMS_ITS | Encounter Summary ---
Author Organization Address [address] [place] [address] Care Team Providers Care Regulatory Manager Name Role Phone Nj MURPHY MD, Jorge Soto Primary Care Provider [phone] Source Comments In the event this information is protected by the Federal Confidentiality of Alcohol and Drug AbusePatient Records regulations: The Federal rules restrict any use of the information to criminally investigate or prosecute any alcohol or drug abuse patient. Encounter Details Date Type Department Care Team (Late st Contact Info) Description 02/14/2025 Patient Msg Neurology [address] [place] [address] Provider, Ccf Schedule appointments Social History Tobacco Use Types Packs/Day Years Used Date Smoking Tobacco: Former Cigarettes 0.1 13 1 1 - 1993 Smokeless Tobacco: Never Alcohol Use Standard Drinks/Week Comments Yes 0 (1 standard drink = 0.6 oz pure alcohol) occasioanlly, stopped drinking early [facility] Utilities Answer Date Recorded In the past 12 months has [employer], gas, oil, or water [employer] threatened to shut off services in your [...] any time in the past 12 m [facility], were you homeless or living in a long-term (including now)? No 08/25/2024 Area Deprivation Index Answer Date Mario rded National Score (1-100), lower number is lower ri sk 73 08/14/2024 State Score (1-10), lower number is lower risk 6 08/14/2024 Data from: https://www.neighborhoodatlas.medicine.[facility].edu/. Last address used for calculation [address] [address] 08/14/2024 Comments No Sex and Gender Information Value Date Recorded Sex Assigned at Not on file Legal Sex Female 8:10 AM EST Gender Identity Not on file Sexual Orientation Not on file documented as of this encounter Plan of Treatment Not on file documented as of this encounter Visit Diagnoses Not on filedocumented in this encounter Care Teams Regulatory Manager Relationship Specialty Start Date End Date Jorge Mauro II, MD PCP - General 08/25/07 documented as of this encounter
--- OUTSIDE RECORDS SUMMARY | 2025-05-25 13:56 | XMS_ITS | Referral Summary ---
Author Organization [facility] Address [address] [place] [address] Care Team Providers Care Welder Explosion Name Role Phone Unavailable Primary Care Provider [...]
--- OUTSIDE RECORDS SUMMARY | 2025-05-25 13:56 | XMS_ITS | Encounter Summary ---
Author Organization [facility] Address [address] [place] [address] Care Team Providers Care Automobile Upholstery Trim Installer Name Role Phone Jorge Mauro MD Unavailable [phone] Jorge Mauro MD Primary Care Provider [phone] Jorge Mauro MD Unavailable [phone] Encounter Details Date Type Department Care Team (Late st Contact Info) Description 09/11/2024 Abstract [facility] [address] [facility] [address] [place] [address] Jorge Mauro MD [address] [facility] [address] [place] [address] Social History Tobacco Use Types [...] week 05/21/2024 How often do you attend nondenominational or jainism serv ices? Never 05/21/2024 Do you belong to any clubs o r organizations such as nondenominational groups, unions, fraternal or athletic groups, or [...] Recorded Patient Health Questionnaire-2 Score 0 08/30/2023 [facility] - [...] any time in the past 12 [facility], were you homeless or living in a intermediate (including now)? No 05/21/2024 Comments Unknown Sex [...] [address] [place] [address] Jorge Mauro MD [address] [place] [address] documented as of this encounter Visit Diagnoses Not on filedocumented in this encounter Care Teams Automobile Upholstery Trim Installer Relationship Specialty Start Date End Date Jorge Mauro MD [address] [place] [address] PCP - ACO Reach 04/22/23 01/04/25 Jorge Mauro MD [address] [place] [address] PCP - General Internal Medicine 05/25/23 Jorge Mauro MD [address] [place] [address] PCP - ACO Reach 01/12/25 03/01/25 documented as of this encounter
--- OUTSIDE RECORDS SUMMARY | 2025-05-25 13:56 | XMS_ITS | Encounter Summary ---
Author Organization [facility] Address [address] [facility] [place] [address] Care Team Providers Care Cotton Jammer Name Role Phone Jorge Mauro MD Unavailable [phone] Jorge Mauro MD Primary Care Provider [phone] Jorge Mauro MD Unavailable [phone] Encounter Details Date Type Department Care Team (Late Contact Info) Description 10/13/2023 Abstract [facility] [address] [facility] [address] [place] [phone] Jorge Mauro MD [address] [facility] [address] [place], [place] [id number] Social History Tobacco Use Types Packs/Day Years [...] EDT Office Visit [facility] [address] [facility] [address] [place] [phone] Jorge Mauro MD 112 [facility] [address] [place], [place] [id number] documented as of this encounter Visit Diagnoses Not on filedocumented in this encounter Care Teams Cotton Jammer Relationship Specialty Start Date End Date Jorge Mauro MD [address] [place] [address] PCP - ACO Reach 04/22/23 01/04/25 Jorge Mauro MD [address] [place] [address] PCP - General Internal Medicine 05/25/23 Jorge Mauro MD [address] [place] [address] PCP - ACO Reach 01/12/25 03/01/25 documented as of this encounter
--- NOTE | 2025-05-25 13:57 | XR_ITS ---
The [place] [id number] Patient Name: ALEXSANDER GUTIERREZ MRN: [id number] date: 1965 Sex: F Assigned Patient Location: [facility] Current Patient Location: [facility] Accession/Order Number: [id number] Exam Date: 05/25/2025 14:50 Report Date: 05/25/2025 14:54 At the request of: MODESTO BOWER Procedure: XR abdomen min 2V ABDOMEN 2 VIEWS: CLINICAL INFORMATION: Acute diarrhea for 5 days. COMPARISON: CT abdomen and pelvis 10/14/2020 FINDINGS: Moderate stool burden is seen involving the rectum. No bowel obstruction or free air. Post cholecystectomy clips. IVC filter is in place. Osseous structures demonstrate degenerative change. XR/XR abdomen min 2V IMPRESSION: MODERATE STOOL BURDEN SEEN INVOLVING THE RECTUM. NO BOWEL OBSTRUCTION IS SEEN. Impression dictated by: Immanuel Garcia Jr., D.O. 05/25/2025 2:54 PM Dictation Location: [place] [address] Electronically authenticated by: [id number] Y Date: 05/25/2025 14:54
--- OUTSIDE RECORDS SUMMARY | 2025-05-25 13:57 | XMS_ITS | Encounter Summary ---
Author Organization [facility] Address [address] [facility] [place] [address] Care Team Providers Care Global Chief Experience Officer Name Role Phone Jorge Mauro MD Primary Care Provider [phone] Encounter Details Date Type Department Care Team (Late st Contact Info) Description 04/10/2025 Abstract [facility] [address] [facility] [address] [place] [phone] Jorge Mauro MD [address] [facility] [address] [place], [place] [address] Social History Tobacco Use Types Packs/Day Years [...] week 05/21/2024 How often do you attend mandaeism or religion serv ices? Never 05/21/2024 Do you belong to any clubs o r organizations such as mandaeism groups, unions, fraternal or athletic groups, or [...] 04/09/2025 [facility] ional [facility] - Occupational Stress Questionnaire Answer Date [...] any time in the past 12 m [facility], were you homeless or living in a long term (including now)? No 05/21/2024 Comments Unknown Sex [...] Visit [facility] [address] [facility] [address] [place] [address] Jorge Mauro MD [address] [facility] [address] [place] [address] documented as of this encounter Visit Diagnoses Not on filedocumented in this encounter Care Teams Global Chief Experience Officer Relationship Specialty Start Date End Date Jorge Mauro MD [address] [facility] [address] [place] [address] PCP - General Internal Medicine 05/25/23 documented as of this encounter
--- OUTSIDE RECORDS SUMMARY | 2025-05-25 13:58 | XMS_ITS | Encounter Summary ---
Author Organization [facility] Address [address] [place] [address] Care Team Providers Care Environmental Adviser Name Role Phone Jorge Mauro MD Unavailable [phone] Jorge Mauro MD Primary Care Provider [phone] Jorge Mauro MD Unavailable [phone] Encounter Details Date Type Department Care Team (Late st Contact Info) Description 03/28/2024 Clinisync Result Encounter [facility] External Department Unsolicited [...] CI [facility] [address] [place] [id number] Jorge Mauro MD [address] [place], [place] [id number] documented as of this encounter Procedures Procedure Name Priority Date/Time Associated Diagnosis Comments CT BRAIN WO IVCON 03/28/2024 3:1 3 PM EDT documented in this encounter Results * CT BRAIN WO IVCON (03/28/2024 3:13 PM EDT) Anatomical Region Laterality Modality Other 03/28/2024 3:13 PM EDT Addenda Addendum by Radiology, RadiologistMD on 03/30/2024 3:52 PM EDT * * *Final Report* * * * * * SEE BOTTOM OF REPORT FOR ADDENDED TEXT * * * DATE OF EXAM: Mar 28 2024 3:13PM [facility] [place] / PROCEDURE REASON: Essential tremor * * * * Physician Interpretation * * * * * * * * * * * * ORIGINAL REPORT * * * * * * * * EXAMINATION: CT BRAIN WO IVCON CLINICAL HISTORY: Essential tremor TECHNIQUE: Serial axial images without IV contrast were obtained from the vertex to the foramen magnum. MQ: CTBWO_3 CT Radiation dose: Integrated Dose-Length Product (DLP) for this visit = 695 mGy*cm CT Dose Reduction Employed: Automated exposure control (AEC) COMPARISON: MR brain 11/10/2021 RESULT: Localizer images: No significant findings. Post-operative [...] matter which is nonspecific but likely represents moderate to severe microvascular ischemia. Age. Parenchyma: There is no significant volume loss. The brain parenchyma is otherwise within normal limits for age. Ventricles: The ventricles are within normal limits of size and configuration for age. Paranasal sinuses and skull base: Remote nasal bone deformity. Hypoplastic right maxillary sinus with mucosal thickening noted. The skull base and imaged soft tissues are unremarkable. IMPRESSION: No acute intracranial process by CT. No acute intracranial hemorrhage. Low-attenuation in the white matter, prominent for age, also seen on prior MRI, nonspecific but may be due to moderate to severe chronic microvascular change. * * * * * * * * ADDENDUM #1 * * * * * * * * Postprocessing of Head CT was performed for consideration of therapeutic ultrasound treatment. Number of active elements: 963 Skull surface area: 334 cm^2 Skull density ratio: 0.48 Clear Coat Sprayer: LAST Transcribe Date/Time: Mar 30 2024 3:50P Dictated by : LISA PATRICK MD This examination was interpreted and the report reviewed and electronically signed by: MARIO LEMON MD on Mar 28 2024 3:16PM EST This document has been addended by: LISA PATRICK MD on Mar 30 2024 3:50PM EST [id number]^ACN Narrative 03/28/2024 3:18 PM EDT * * *Final Report* * * DATE OF EXAM: Mar 28 2024 3:13PM [facility] [place] BRAIN [place] IVCON / PROCEDURE REASON: Essential tremor * * * * Physician Interpretation * * * * EXAMINATION: CT BRAIN WO IVCON CLINICAL HISTORY: Essential tremor TECHNIQUE: Serial axial images without IV contrast were obtained from the vertex to the foramen magnum. MQ: CTBWO_3 CT Radiation dose: Integrated Dose-Length Product (DLP) for this visit = 695 mGy*cm CT Dose Reduction Employed: Automated exposure control (AEC) COMPARISON: MR brain 11/10/2021 RESULT: Localizer images: No significant findings. Post-operative [...] matter which is nonspecific but likely represents moderate to severe microvascular ischemia. Age. Parenchyma: There is no significant volume loss. The brain parenchyma is otherwise within normal limits for age. Ventricles: The ventricles are within normal limits of size and configuration for age. Paranasal sinuses and skull base: Remote nasal bone deformity. Hypoplastic right maxillary sinus with mucosal thickening noted. The skull base and imaged soft tissues are unremarkable. IMPRESSION: No acute intracranial process by CT. No acute intracranial hemorrhage. Low-attenuation in the white matter, prominent for age, also seen on prior MRI, nonspecific but may be due to moderate to severe chronic microvascular change. Clear Coat Sprayer: LAST Transcribe Date/Time: Mar 28 2024 3:14P Dictated by : MARIO LEMON MD This examination was interpreted and the report reviewed and electronically signed by: MARIO LEMON MD on Mar 28 2024 3:16PM EST [id number]^ACN Procedure Note Radiology, Radiologist, - 03/30/2024 * * *Final Report* * * DATE OF EXAM: Mar 28 2024 3:13PM [facility] [place] CT BRAIN WO IVCON / PROCEDURE REASON: Essential tremor * * * * Physician Interpretation * * * * EXAMINATION: CT BRAIN WO IVCON CLINICAL HISTORY: Essential tremor TECHNIQUE: Serial axial images without IV contrast were obtained from the vertex to the foramen magnum. MQ: CTBWO_3 CT Radiation dose: Integrated Dose-Length Product (DLP) for this visit = 695 mGy*cm CT Dose Reduction Employed: Automated exposure control (AEC) COMPARISON: MR brain 11/10/2021 RESULT: Localizer images: No significant findings. Post-operative [...] matter which is nonspecific but likely represents moderate to severe microvascular ischemia. Age. Parenchyma: There is no significant volume loss. The brain parenchyma is otherwise within normal limits for age. Ventricles: The ventricles are within normal limits of size and configuration for age. Paranasal sinuses and skull base: Remote nasal bone deformity. Hypoplastic right maxillary sinus with mucosal thickening noted. The skull base and imaged soft tissues are unremarkable. IMPRESSION: No acute intracranial process by CT. No acute intracranial hemorrhage. Low-attenuation in the white matter, prominent for age, also seen on prior MRI, nonspecific but may be due to moderate to severe chronic microvascular change. Clear Coat Sprayer: LAST Transcribe Date/Time: Mar 28 2024 3:14P Dictated by : MARIO LEMON MD This examination was interpreted and the report reviewed and electronically signed by: MARIO LEMON MD on Mar 28 2024 3:16PM EST [id number]^[email or web address]^ACN us Generic External Data Provider [facility] Edited Result - Final documented in this encounter Visit Diagnoses Not on filedocumented in this encounter Care Teams Environmental Adviser Relationship Specialty Start Date End Date Jorge Mauro MD [address] [place] [address] PCP - ACO Reach 04/22/23 01/04/25 Jorge Mauro MD [address] [place] [address] PCP - General Internal Medicine 05/25/23 Jorge Mauro MD [address] [place] [address] PCP - ACO Reach 01/12/25 03/01/25 documented as of this encounter
--- OUTSIDE RECORDS SUMMARY | 2025-05-25 13:58 | XMS_ITS | Encounter Summary ---
Author Organization [facility] Address [address] [facility] [place] [address] Care Team Providers Care Coal Digger Name Role Phone Jorge Mauro MD Unavailable [phone] Jorge Mauro MD Primary Care Provider [phone] Jorge Mauro MD Unavailable [phone] Encounter Details Date Type Department Care Team (Late Contact Info) Description 03/09/2024 Abstract [facility] [address] [facility] [address] [place] [phone] Jorge Mauro MD [address] [facility] [address] [place], [place] [id number] Social History Tobacco Use Types Packs/Day Years [...] Office Visit [facility] [address] [facility] [address] [place] [phone] Jorge Mauro MD 112 [facility] [address] [place], [place] [id number] documented as of this encounter Visit Diagnoses Not on filedocumented in this encounter Care Teams Coal Digger Relationship Specialty Start Date End Date Jorge Mauro MD [address] [place] [address] PCP - ACO Reach 04/22/23 01/04/25 Jorge Mauro MD [address] [place] [address] PCP - General Internal Medicine 05/25/23 Jorge Mauro MD [address] [place] [address] PCP - ACO Reach 01/12/25 03/01/25 documented as of this encounter
== END 2025-05-25 13:50 | disposition home or self-care (01) ==
LOC: RAD 13:53
PROVIDERS: PCP Internal Medicine; Visit Provider Nurse Practitioner Family
DX: R19.7 Diarrhea, unspecified (principal)
CPT/HCPCS: 74019